=== PATIENT | male | born 1955 | race Caucasian/White ===

== ENCOUNTER 2023-05-10 20:00 | Observation (INO) ==
[2023-05-10] MEDS ORDERED: SODIUM CHLORIDE 0.9% 1,000 ML IV ONE (21:27)
[2023-05-10] MEDS ORDERED: ONDANSETRON INJ 2 MG/ML 2 ML VIAL IV STA (21:27)
--- NOTE | 2023-05-10 21:34 | Emergency Department Note ---
Impression & Plan Syncope, Nausea, Hypotension, STEVE (acute kidney injury) ED Provider Note NAME: SHANICE HARRIS AGE: 68 SEX: M : 1955 ARRIVES VIA: Ambulance INFORMANT: [Patient][family] ED PROVIDER(S): [Son Blackwood MD] CHIEF COMPLAINT: Syncope HISTORY OF PRESENT ILLNESS: The patient is a 68-year-old male who has been dealing with nausea that has been persistent for at least a week. The patient was given some medication for nausea. He did try 1 today. The patient is on 2 different medications for blood pressure and he took them as directed this morning. The patient was sitting at the table eating this evening and felt dizzy and faint and tired. He thought he just laid his head down but, as per the family, he passed out. He did not suffer any injury. There was no chest pain or abdominal pain. The patient does admit to some pain to swallow, he actually is seeing GI for an endoscopy in 2 days. There has been no urinary complaint, no fever, no exertional chest pain. He becerra s admit to some fatigue lately and there is concern from his family that he may be dehydrated. Of note, as per EMS, the patient was given 1 L of IV saline in route. Initial blood pressure was in the 90s systolic. PMHx/PSHx: See Below SOCIAL HISTORY: See Below. PHYSICAL EXAM: GENERAL: Patient is in no acute distress. HEENT: No acute trauma, normocephalic atraumatic, mucous membranes moist, no nasal congestion. NECK: No stridor, no adenopathy, no meningismus, trachea is midline. LUNGS: Clear to auscultation bilaterally, no wheeze, no rhonchi, breath sounds equal. HEART: Without murmurs gallops or rubs, regular rate and rhythm. ABDOMEN: Soft, nontender, bowel sounds positive, no peritonitis. EXTREMITIES: No cyanosis or edema, full range of motion of all the joints without pain or difficulty, no signs for acute trauma. NEUROLOGIC: Oriented x 3, no acute motor or sensory deficits, no focal weakness. SKIN: No rash, no jaundice, no diaphoresis. DIFFERENTIAL DIAGNOSIS: Dehydration, dysrhythmia, anemia, electrolyte imbalance, NC, vasovagal syncope, among others. EMERGENCY DEPARTMENT COURSE/PROCEDURES: Prior/Outside records reviewed: EMS notes. ECG per my interpretation: Indication was syncope. The ECG shows a normal sinus rhythm with a rate of 83. There is a right bundle branch block. There is no ST elevation, no PVCs. The QTc is 444. No previous ECGs available for comparison. Continuous Cardiac Monitoring per my interpretation: An order was placed for continuous cardiac monitoring. The monitor shows a rate of 83 with normal sinus rhythm. MEDICAL DECISION MAKING: There is a mild leukocytosis, this could be consistent with infection or just his syncopal event. There was a mild anemia with a hemoglobin of 13. There was a normal platelet count. Sodium slightly low at 132 but not in need of emergent correction. Creatinine was quite high consistent with dehydration and acute kidney injury. No concerning liver enzyme elevation. Patient's TSH was elevated however, the T4 was normal. ECG showed a normal sinus rhythm, there was no obvious acute ischemia, no dysrhythmia. The cardiac enzyme testing x1 is not consistent with acute cardiac injury. Urinalysis does not show findings of infection. Chest x-ray per my review does not show mediastinal widening, pneumonia or pneumothorax. On exam, the patient was somewhat hypotensive. The patient was given IV Zofran, he had received a liter of IV fluids prior to arrival, a second liter of fluid was given here in the ED. His blood pressure did improve with the IV hydration. The patient is in need of a hospital stay. He presents after a syncopal spell. He was hypotensive. He does have findings of acute kidney injury. I spoke with the patient and case management, the on-call hospitalist was consulted. DISPOSITION: Patient's presentation and findings warrant a hospital stay. Past Med/Surg History Medical History Hyperlipidemia Obesity, diabetes, and hypertension syndrome Vitamin D deficiency Surgical History No history of previous surgery Family History Sister Hypertension Denies family history of Ovarian cancer Prostate cancer Diabetes Myocardial infarction Breast cancer Colorectal cancer Social History Smoking Status: Former smoker Tobacco Type: Cigarettes Age Started Using Tobacco: 17; Age Quit Using Tobacco: 29; Second Hand Exposure: No; Do You Dip or Chew Tobacco: No; Hx Alcohol Use: No Hx Substance Use: No Preferred Language: French Communication Ability: Effective Visual Impairment: Limited Hearing Ability: Normal Cardroom Drawing Runner Required: No Beliefs That Will Affect Care: None marital status: Single Current Living Situation: Significant Other current occupational status: retired How many Children do You have: 3 Feels Safe at Home: Yes Childhood Exposure to Second-Hand Smoke: No Diet: regular caffeine: Yes (coffee) during the past year weight has: remained stable Dental Care, Regularly: Yes Physical Activity Frequency: Daily Physical Activity Frequency Comment: walking Seatbelt Use: always Sunscreen Use: No Do you think of yourself as: straight/heterosexual Gender Identity: Male Assistive Devices: Denture - Upper and Glasses Allergies Allergies Allergy/AdvReac Type Severity Reaction Status Date / Time No Known Allergies Allergy Verified 05/10/23 21:36 Home Meds Home Medications Medication Instructions Recorded Confirmed metformin 500 mg tablet 500 mg PO DAILY 05/10/23 05/10/23 Previous Rx's Medication Instructions Recorded empagliflozin 25 mg tablet 25 mg PO DAILY #30 tabs 07/11/22 lisinopril 10 mg tablet 10 mg PO DAILY #90 tabs 01/13/23 omeprazole 20 mg capsule,delayed 20 mg PO DAILY #90 caps 01/13/23 release hydrochlorothiazide 25 mg tablet 25 mg PO DAILY #90 tabs 03/02/23 ondansetron 4 mg disintegrating 4 mg PO Q8H PRN nausea and 05/06/23 tablet vomiting #60 tabs sildenafil 50 mg tablet 50 mg PO DAILY PRN sexual activity 05/06/23 #20 tabs simvastatin 20 mg tablet 20 mg PO QPM #90 tabs 05/06/23 Results & Data (ED) Vital Signs Vital Signs - 24 hr 05/10/23 20:05 05/10/23 20:05 05/10/23 20:05 Temperature 37.1 C 37.1 C Temperature Source Oral Oral Pulse Rate 82 Pulse Rate [Apical] 80 Pulse Rate from SpO2 Sensor Pulse Rhythm [Apical] Regular Respiratory Rate 17 16 Respiratory Effort / Characteristics Non-Labored Non-Labored Respiratory Depth Normal Normal Respiratory Pattern Regular Regular Blood Pressure 105/63 Blood Pressure [Right Arm] 105/63 Blood Pressure Mean 77 Blood Pressure Mean [Right Arm] 77 Pulse Oximetry 97 97 100 Oxygen Delivery Method Room Air Room Air Room Air Sepsis Recent Fever Within 48 Hours No Sepsis New/Unexplained Change in Mental Status N/A Sepsis Action Taken by Nursing No Action Required 05/10/23 20:05 05/10/23 20:06 05/10/23 20:30 Temperature Temperature Source Pulse Rate 79 80 89 Pulse Rate [Apical] Pulse Rate from SpO2 Sensor 81 91 H Pulse Rhythm [Apical] Respiratory Rate 16 20 Respiratory Effort / Characteristics Respiratory Depth Respiratory Pattern Blood Pressure Blood Pressure [Right Arm] Blood Pressure Mean Blood Pressure Mean [Right Arm] Pulse Oximetry 97 96 Oxygen Delivery Method Room Air Sepsis Recent Fever Within 48 Hours Sepsis New/Unexplained Change in Mental Status Sepsis Action Taken by Nursing 05/10/23 20:59 05/10/23 21:36 05/10/23 21:00 Temperature Temperature Source Pulse Rate 83 Pulse Rate [Apical] Pulse Rate from SpO2 Sensor 83 Pulse Rhythm [Apical] Respiratory Rate 18 Respiratory Effort / Characteristics Respiratory Depth Respiratory Pattern Blood Pressure 94/59 L 104/65 Blood Pressure [Right Arm] Blood Pressure Mean 70 74 Blood Pressure Mean [Right Arm] Pulse Oximetry 93 96 Oxygen Delivery Method Room Air Sepsis Recent Fever Within 48 Hours Sepsis New/Unexplained Change in Mental Status Sepsis Action Taken by Nursing 05/10/23 21:30 05/10/23 22:00 05/10/23 22:30 Temperature Temperature Source Pulse Rate 78 70 73 Pulse Rate [Apical] Pulse Rate from SpO2 Sensor 80 71 75 Pulse Rhythm [Apical] Respiratory Rate 18 17 22 Respiratory Effort / Characteristics Respiratory Depth Respiratory Pattern Blood Pressure 105/68 109/71 109/74 Blood Pressure [Right Arm] Blood Pressure Mean 80 83 85 Blood Pressure Mean [Right Arm] Pulse Oximetry 96 97 94 Oxygen Delivery Method Room Air Room Air Room Air Sepsis Recent Fever Within 48 Hours Sepsis New/Unexplained Change in Mental Status Sepsis Action Taken by Shelter Medications Current Medication List: was personally reviewed by me Laboratory Data Attestation: I reviewed the patient's lab results. 05/10/23 20:10 05/10/23 20:10 Lab Results 05/10/23 05/10/23 Range/Units 20:10 20:10 WBC 11.58 H (4.8-10.8) K/ul RBC 4.57 L (4.70-6.10) M/uL Hgb 13.0 L (14.0-18.0) g/dl Hct 38.6 L (42.0-52.0) % MCV 84.5 (80.0-100.0) fL MCH 28.4 (25.0-34.0) pg MCHC 33.7 (32.0-36.0) g/dL RDW Std Deviation 42.1 (36.4-46.3) fL RDW Coeff of Michael 13.7 (11.5-14.5) % Plt Count 393 (130-400) K/uL MPV 10.8 (9.4-12.4) fL Immature Gran % (Auto) 0.5 % Neut % (Auto) 70.0 % Lymph % (Auto) 17.8 % [place] % (Auto) 9.7 % Eos % (Auto) 1.5 % Baso % (Auto) 0.5 % Neut # (Auto) 8.11 H (1.40-6.50) K/uL Lymph # (Auto) 2.06 (1.20-3.40) K/uL [place] # (Auto) 1.12 H (0.11-0.59) K/uL Eos # (Auto) 0.17 (0.00-0.50) K/uL Baso # (Auto) 0.06 (0.00-0.20) K/uL Immature Gran # (Auto) 0.06 (0.01-0.20) K/uL Sodium 132 L (136-145) mmol/L Potassium 3.6 (3.5-5.1) mmol/L Chloride 95 L (98-107) mmol/L Carbon Dioxide 27 (21-32) mmol/L Anion Gap 10 (3-11) BUN 21 (6-23) mg/dl Creatinine 2.40 H (0.6-1.4) mg/dl Est Cr Clr Drug Dosing 31.6 ml/min Est GFR ( Amer) 30.5 ml/min Est GFR (Non-Af Amer) 26.3 ml/min BUN/Creatinine Ratio 8.8 L (10-20) Glucose 158 H (70-99(Fasting)) mg/dl Calcium 10.0 (8.6-10.3) mg/dl Magnesium 2.0 (1.7-2.4) mg/dl Total Bilirubin 0.6 (0.2-1.0) mg/dl AST 17 (13-39) U/L ALT 10 (7-52) U/L Alkaline Phosphatase 82 (34-104) U/L Troponin I High Sens 6.6 (0-20) pg/ml Total Protein 8.0 (6.0-8.3) gm/dl Albumin 4.3 (3.4-5.0) gm/dl Globulin 3.7 (2.5-4.0) gm/dl Albumin/Globulin Ratio 1.2 (0.9-2) TSH 8.742 H (0.300-4.500) uIu/ml Free T4 1.00 (0.61-1.60) ng/dl Administered Medications Discontinued Medications Sodium Chloride (Nss) 1,000 mls @ 999 mls/hr IV .Q1H1M ONE Stop: 05/10/23 22:27 Last Infusion: 05/10/23 22:37 Dose: 0 mls/hr Documented By: Admin: 05/10/23 21:35 Dose: 999 mls/hr Documented By: ANTONIO Ondansetron HCl (Ondansetron Inj 2 Mg/Ml 2 Ml Vial) 4 mg IV NOW STA Stop: 05/10/23 21:28 Last Admin: 05/10/23 21:34 Dose: 4 mg Documented By: ANTONIO Imaging Data Attestation: I personally reviewed and interpreted this imaging study as follow s: My Impression: Chest x-ray: Per my review there is no mediastinal widening, pneumonia or pneumothorax. Discharge Plan Visit Data Chief Complaint: Syncope ED Provider: Son Blackwood Discharge Problem: Syncope, Nausea, Hypotension, STEVE (acute kidney injury) Patient Disposition: Admitted As Inpatient Condition: Fair
[2023-05-10 21:50] LABS: Basophils # (auto) 0.06 K/uL (0.00-0.20); Basophils % (auto) 0.5 %; Eosinophils # (auto) 0.17 K/uL (0.00-0.50); Eosinophils % (auto) 1.5 %; Hematocrit (blood only) 38.6 % (42.0-52.0); Immature Granulocytes # (auto) 0.06 K/uL (0.01-0.20); Immature Granulocytes % (auto) 0.5 %; Lymphocytes # (auto) 2.06 K/uL (1.20-3.40); Lymphocytes % (auto) 17.8 %; Mean Corpuscular Hemoglobin 28.4 pg (25.0-34.0); Mean Corpuscular Hgb Conc 33.7 g/dL (32.0-36.0); Mean Corpuscular Volume 84.5 fL (80.0-100.0); Mean Platelet Volume 10.8 fL (9.4-12.4); Monocytes # (auto) 1.12 K/uL (0.11-0.59); Monocytes % (auto) 9.7 %; Neutrophils # (auto) 8.11 K/uL (1.40-6.50); Platelet Count 393 K/uL (130-400); RDW Coefficient of Variation 13.7 % (11.5-14.5); RDW Standard Deviation 42.1 fL (36.4-46.3); Red Blood Count 4.57 M/uL (4.70-6.10); White Blood Count 11.58 K/ul (4.8-10.8)
[2023-05-10 21:52] LABS: Albumin Globulin Ratio 1.2 (0.9-2); Albumin Level 4.3 gm/dl (3.4-5.0); BUN Creatinine Ratio 8.8 (10-20); Bilirubin,Total 0.6 mg/dl (0.2-1.0); Creatinine Clr Calc Pharmacy 31.6 ml/min; Est GFR (African American) 30.5 ml/min; Est GFR (Non-African American) 26.3 ml/min; Globulin 3.7 gm/dl (2.5-4.0); Potassium 3.6 mmol/L (3.5-5.1)
[2023-05-10 22:00] LABS: Troponin I High Sensitivity 6.6 pg/ml (0-20)
[2023-05-10 22:09] LABS: Thyroid Stimulating Hormone 8.742 uIu/ml (0.300-4.500)
--- NOTE | 2023-05-10 22:49 | History & Physical Report ---
Date of Service May 10, 2023 Assessment & Plan (1) STEVE (acute kidney injury): (2) Hypotension: (3) Nausea: (4) Syncope: (5) Obesity, diabetes, and hypertension syndrome: (6) Dysphagia: Plan Acute kidney injury/dehydration- Creatinine 2.40, with baseline 1.14 Status post 1 L normal saline in the ED Placed on NSS at 150 mils per hour Hold HCTZ, lisinopril and empagliflozin Repeat laboratories in the a.m. 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 Patient presents to the emergency department as noted above. Significant laboratories: WBC 11.58, hemoglobin 13.0, hematocrit 38.6, sodium 132, creatinine 2.40, glucose 158, TSH 8.742. X-ray of chest is normal From the ED patient received normal saline 1 L Allergies Allergy/AdvReac Type Severity Reaction Status Date / Time No Known Allergies Allergy Verified 05/10/23 21:36 Home Medications Medication Instructions Recorded Confirmed Type empagliflozin 25 mg tablet 25 mg PO DAILY #30 tabs 07/11/22 05/10/23 Rx lisinopril 10 mg tablet 10 mg PO DAILY #90 tabs 01/13/23 05/10/23 Rx omeprazole 20 mg capsule,delayed 20 mg PO DAILY #90 caps 01/13/23 05/10/23 Rx release hydrochlorothiazide 25 mg tablet 25 mg PO DAILY #90 tabs 03/02/23 05/10/23 Rx ondansetron 4 mg disintegrating 4 mg PO Q8H PRN nausea and 05/06/23 05/10/23 Rx tablet vomiting #60 tabs sildenafil 50 mg tablet 50 mg PO DAILY PRN sexual activity 05/06/23 05/10/23 Rx #20 tabs simvastatin 20 mg tablet 20 mg PO QPM #90 tabs 05/06/23 05/10/23 Rx metformin 500 mg tablet 500 mg PO DAILY 05/10/23 05/10/23 History Past Med/Surg History Medical History Hyperlipidemia Obesity, diabetes, and hypertension syndrome Vitamin D deficiency Surgical History No history of previous surgery Family History Sister Hypertension Denies family history of Ovarian cancer Prostate cancer Diabetes Myocardial infarction Breast cancer Colorectal cancer Social History Smoking Status: Former smoker Tobacco Type: Cigarettes Age Started Using Tobacco: 17; Age Quit Using Tobacco: 29; Second Hand Exposure: No; Do You Dip or Chew Tobacco: No; Hx Alcohol Use: No Hx Substance Use: No Preferred Language: Belarusian Communication Ability: Effective Visual Impairment: Limited Hearing Ability: Normal Lpc Required: No Beliefs That Will Affect Care: None marital status: Single Current Living Situation: Significant Other current occupational status: retired How many Children do You have: 3 Feels Safe at Home: Yes Childhood Exposure to Second-Hand Smoke: No Diet: regular caffeine: Yes (coffee) during the past year weight has: remained stable Dental Care, Regularly: Yes Physical Activity Frequency: Daily Physical Activity Frequency Comment: walking Seatbelt Use: always Sunscreen Use: No Do you think of yourself as: straight/heterosexual Gender Identity: Male Assistive Devices: Denture - Upper and Glasses Review of Systems Review of Systems: The patient denies chest pain, palpitations, shortness of breath, dyspnea on exertion, cough, lower extremity swelling, sore throat, fevers, chills, sweats, vomiting, diarrhea , constipation, abdominal pain, pelvic pain, blood in urine or stool, dysuria, urinary frequency or urgency, headache, rash, abnormal bruising or bleeding, imbalance, focal weakness, numbness or tingling in arms or legs, generalized arthralgias or myalgias, back or neck pain, or night sweats. The review of systems is otherwise negative other than for that already noted above, and at least 10 systems have been reviewed. Physical Exam Physical Exam: The patient is awake, alert and oriented 3, well developed and well nourished, normocephalic and atraumatic, lying in bed and in no acute distress. HEENT--PERRL, EOMI, mucous membranes and oropharynx moderately dry. Neck--supple. No JVD. No bruits. Thyroid normal, trachea midline, no adenopathy. Heart--normal S1 and S2. No murmurs, rubs or gallops. Lungs--clear bilaterally, no respiratory distress, no accessory muscle use. Abdomen--normal bowel sounds and soft. Nontender. Nondistended, no hernias or masses, no organomegaly. Extremities--no cyanosis or clubbing. No edema. Dermatologic--skin with normal color, dry Neurologic--cranial nerves II through XII grossly intact. Rheumatologic--normal range of motion. Psychiatric--normal affect. Results & Data Results & Data Vital Signs (Past 12 Hours) Vital Signs Temp Pulse Pulse Resp BP BP Pulse Ox 05/10/23 22:30 73 22 109/74 94 05/10/23 22:00 70 17 109/71 97 05/10/23 21:30 78 18 105/68 96 05/10/23 21:00 104/65 05/10/23 21:36 96 05/10/23 20:59 83 18 94/59 L 93 05/10/23 20:30 89 20 96 05/10/23 20:06 80 16 97 05/10/23 20:05 79 05/10/23 20:05 37.1 C 80 16 105/63 100 05/10/23 20:05 97 05/10/23 20:05 37.1 C 82 17 105/63 97 O2 Del Method 05/10/23 22:30 Room Air 05/10/23 22:00 Room Air 05/10/23 21:30 Room Air 05/10/23 21:00 05/10/23 21:36 Room Air 05/10/23 20:59 05/10/23 20:30 Room Air 05/10/23 20:06 05/10/23 20:05 05/10/23 20:05 Room Air 05/10/23 20:05 Room Air 05/10/23 20:05 Room Air Laboratory Results Laboratory Results WBC 11.58 K/ul (4.8-10.8) H 05/10/23 20:10 RBC 4.57 M/uL (4.70-6.10) L 05/10/23 20:10 Hgb 13.0 g/dl (14.0-18.0) L 05/10/23 20:10 Hct 38.6 % (42.0-52.0) L 05/10/23 20:10 MCV 84.5 fL (80.0-100.0) 05/10/23 20:10 MCH 28.4 pg (25.0-34.0) 05/10/23 20:10 MCHC 33.7 g/dL (32.0-36.0) 05/10/23 20:10 RDW Std Deviation 42.1 fL (36.4-46.3) 05/10/23 20:10 RDW Coeff of Michael 13.7 % (11.5-14.5) 05/10/23 20:10 Plt Count 393 K/uL (130-400) 05/10/23 20:10 MPV 10.8 fL (9.4-12.4) 05/10/23 20:10 Immature Gran % (Auto) 0.5 % 05/10/23 20:10 Neut % (Auto) 70.0 % 05/10/23 20:10 Lymph % (Auto) 17.8 % 05/10/23 20:10 [place] % (Auto) 9.7 % 05/10/23 20:10 Eos % (Auto) 1.5 % 05/10/23 20:10 Baso % (Auto) 0.5 % 05/10/23 20:10 Neut # (Auto) 8.11 K/uL (1.40-6.50) H 05/10/23 20:10 Lymph # (Auto) 2.06 K/uL (1.20-3.40) 05/10/23 20:10 [place] # (Auto) 1.12 K/uL (0.11-0.59) H 05/10/23 20:10 Eos # (Auto) 0.17 K/uL (0.00-0.50) 05/10/23 20:10 Baso # (Auto) 0.06 K/uL (0.00-0.20) 05/10/23 20:10 Immature Gran # (Auto) 0.06 K/uL (0.01-0.20) 05/10/23 20:10 Sodium 132 mmol/L (136-145) L 05/10/23 20:10 Potassium 3.6 mmol/L (3.5-5.1) 05/10/23 20:10 Chloride 95 mmol/L (98-107) L 05/10/23 20:10 Carbon Dioxide 27 mmol/L (21-32) 05/10/23 20:10 Anion Gap 10 (3-11) 05/10/23 20:10 BUN 21 mg/dl (6-23) 05/10/23 20:10 Creatinine 2.40 mg/dl (0.6-1.4) H 05/10/23 20:10 Est Cr Clr Drug Dosing 31.6 ml/min 05/10/23 20:10 Est GFR ( Amer) 30.5 ml/min 05/10/23 20:10 Est GFR (Non-Af Amer) 26.3 ml/min 05/10/23 20:10 BUN/Creatinine Ratio 8.8 (10-20) L 05/10/23 20:10 Glucose 158 mg/dl (70-99(Fasting)) H 05/10/23 20:10 Calcium 10.0 mg/dl (8.6-10.3) 05/10/23 20:10 Magnesium 2.0 mg/dl (1.7-2.4) 05/10/23 20:10 Total Bilirubin 0.6 mg/dl (0.2-1.0) 05/10/23 20:10 AST 17 U/L (13-39) 05/10/23 20:10 ALT 10 U/L (7-52) 05/10/23 20:10 Alkaline Phosphatase 82 U/L (34-104) 05/10/23 20:10 Troponin I High Sens 6.6 pg/ml (0-20) 05/10/23 20:10 Total Protein 8.0 gm/dl (6.0-8.3) 05/10/23 20:10 Albumin 4.3 gm/dl (3.4-5.0) 05/10/23 20:10 Globulin 3.7 gm/dl (2.5-4.0) 05/10/23 20:10 Albumin/Globulin Ratio 1.2 (0.9-2) 05/10/23 20:10 TSH 8.742 uIu/ml (0.300-4.500) H 05/10/23 20:10 Free T4 1.00 ng/dl (0.61-1.60) 05/10/23 20:10 Urine Color Yellow 05/10/23 23:18 Urine Appearance Clear (Clear) 05/10/23 23:18 Urine pH 6.5 (4.5-7.5) 05/10/23 23:18 Ur Specific [place] 1.013 (1.000-1.030) 05/10/23 23:18 Urine Protein 1+ (Negative) H 05/10/23 23:18 Urine Glucose (UA) 2+ (Negative) H 05/10/23 23:18 Urine Ketones Negative (Negative) 05/10/23 23:18 Urine Blood Negative (Negative) 05/10/23 23:18 Urine Nitrite Negative (Negative) 05/10/23 23:18 Urine Bilirubin Negative (Negative) 05/10/23 23:18 Urine Urobilinogen Negative (Negative) 05/10/23 23:18 Ur Leukocyte Esterase Negative (Negative) 05/10/23 23:18 Urine WBC (Auto) 1-5 /hpf (0-5) 05/10/23 23:18 Urine RBC (Auto) 0-4 /hpf (0-4) 05/10/23 23:18 U Hyaline Cast (Auto) 5-10 /lpf (0-5) H 05/10/23 23:18 U Epithel Cells (Auto) 10-20 /lpf (0-5) H 05/10/23 23:18 Urine Bacteria (Auto) Negative (Negative) 05/10/23 23:18 Code Status & VTE Plan Code Status Full code VTE Prophylaxis Plan VTE Prophylaxis will be ordered: Yes PG Care Time/CCT Total # of Minutes Spent Total Time Spent with Patient: Total time spent is greater than 50% in coordination of care (as documented) at patient's floor/unit and/or counseling patient: Coding Level of Care Code 39440 INT INP/OBS CARE MIN Diagnoses STEVE (acute kidney injury) N17.9 Hypotension I95.9 Hypotension type: unspecified hypotension type Nausea R11.0 Syncope R55 Syncope type: unspecified Obesity, diabetes, and hypertension syndrome E11.69; E11.59; E66.9; I15.2 Dysphagia R13.10 (2) Hypotension Hypotension type: unspecified hypotension type Qualified Code(s): I95.9 - Hypotension, unspecified (4) Syncope Syncope type: unspecified Qualified Code(s): R55 - Syncope and collapse
[2023-05-10 23:37] LABS: Appearance Urine Clear (Clear); Bacteria Urine Automated Negative (Negative); Bilirubin Urine Negative (Negative); Blood Urine Negative (Negative); Color Urine Yellow; Glucose Urine UA 2+ (Negative); Ketones Urine Negative (Negative); Leukocyte Esterase Urine Negative (Negative); Nitrite Urine Negative (Negative); Protein Urine 1+ (Negative); RBC Urine Automated 0-4 /hpf (0-4); Specific Gravity Urine 1.013 (1.000-1.030); Urobilinogen Urine Negative (Negative); pH Urine 6.5 (4.5-7.5)
[2023-05-10] MEDS ORDERED: GLUCOSE 10 TAB/TUBE PO PRN (23:40)
[2023-05-10] MEDS ORDERED: CARBOHYDRATES FOR HYPOGLYCEMIA PO PRN (23:40)
[2023-05-10] MEDS ORDERED: ONDANSETRON INJ 2 MG/ML 2 ML VIAL IV PRN (23:40)
[2023-05-10] MEDS ORDERED: GLUCAGON FOR INJ 1 MG VIAL SQ PRN (23:40)
[2023-05-10] MEDS ORDERED: GLUCOSE 40% GEL 15 GM TUBE PO PRN (23:40)
[2023-05-10] MEDS ORDERED: ACETAMINOPHEN 325 MG TAB PO PRN (23:40)
[2023-05-10] MEDS ORDERED: DEXTROSE 50% 50 ML SYRINGE IV PRN (23:40)
[2023-05-11] MEDS: SODIUM CHLORIDE 0.9% 1,000 ML IV SCH ×3 (01:33→14:58)
[2023-05-11 04:35] LABS: Basophils # (auto) 0.04 K/uL (0.00-0.20); Basophils % (auto) 0.5 %; Eosinophils # (auto) 0.14 K/uL (0.00-0.50); Eosinophils % (auto) 1.6 %; Hematocrit (blood only) 32.3 % (42.0-52.0); Hemoglobin 11.2 g/dl (14.0-18.0); Immature Granulocytes # (auto) 0.03 K/uL (0.01-0.20); Immature Granulocytes % (auto) 0.3 %; Lymphocytes # (auto) 1.39 K/uL (1.20-3.40); Lymphocytes % (auto) 15.8 %; Mean Corpuscular Hemoglobin 29.2 pg (25.0-34.0); Mean Corpuscular Hgb Conc 34.7 g/dL (32.0-36.0); Mean Corpuscular Volume 84.1 fL (80.0-100.0); Mean Platelet Volume 10.3 fL (9.4-12.4); Monocytes # (auto) 0.78 K/uL (0.11-0.59); Monocytes % (auto) 8.9 %; Neutrophils # (auto) 6.43 K/uL (1.40-6.50); Neutrophils % (auto) 72.9 %; Platelet Count 295 K/uL (130-400); RDW Coefficient of Variation 13.5 % (11.5-14.5); RDW Standard Deviation 41.5 fL (36.4-46.3); Red Blood Count 3.84 M/uL (4.70-6.10); White Blood Count 8.81 K/ul (4.8-10.8)
[2023-05-11 04:52] LABS: Albumin Level 3.5 gm/dl (3.4-5.0); BUN Creatinine Ratio 10.3 (10-20); Calcium 8.6 mg/dl (8.6-10.3); Est GFR (African American) 41.8 ml/min; Est GFR (Non-African American) 36.1 ml/min; Magnesium 1.9 mg/dl (1.7-2.4); Phosphorus 4.1 mg/dl (2.5-4.9)
[2023-05-11 07:05] LABS: Estimated Average Glucose 140 mg/dl; Hemoglobin A1C 6.5 % (4.5-5.6)
--- NOTE | 2023-05-11 07:48 | XRay Report ---
XR chest 1V portable CLINICAL HISTORY: weakness TECHNIQUE: Single frontal radiograph of the chest was obtained. Comparison: None available at the time of this dictation. FINDINGS: No lines and tubes are seen. The cardiomediastinal silhouette is normal. The lungs are clear. No evid ence of pleural effusion or pneumothorax. IMPRESSION: No acute chest disease. ACT 112: Negative or not required by law. Electronically signed by: Jitendra Jefferson M.D. 05/11/2023 7:47 AM
[2023-05-11] MEDS: INSULIN ASPART PER UNIT CHARGE SC SCH ×4 (07:52→22:18)
[2023-05-11] MEDS: PANTOprazole 40 MG TAB PO SCH (09:42)
--- NOTE | 2023-05-11 13:16 | Hospitalist Progress Note ---
Date of Service May 11, 2023 Assessment & Plan (1) STEVE (acute kidney injury): Plan: Continue IV fluids. Monitor intake and output. Serial labs. Lisinopril and hy drochlorothiazide are on hold (2) Hypotension: Plan: Resolved with IV fluid resuscitation. Lisinopril is on hold (3) Nausea: Plan: Intermittent. Zofran as needed (4) Syncope: Plan: Most likely due to orthostatic hypotension. Supportive care. IV fluids. Telemetry (5) Dysphagia: Plan: Recent development. Outpatient evaluation. PCP aware Plan Hopeful discharge to home tomorrow, May 12 Admission and Anticipated Discharge Date Admission Date: May 10, 2023 Subjective Alert and oriented. No acute distress. Significant other is at the bedside. Continue IV fluids for now. Lisinopril, hydrochlorothiazide, metformin, are on hold. Creatinine improved to 1.8 already with IV fluids. Hopefully he can go home tomorrowMay 12 Review of Systems Review of Systems: Constitutional-no fever or chills ENT-no blurred vision, no double vision, no epistaxis, no sore throat Respiratory-no cough, no wheezing, no shortness of breath Cardiac-no palpitations, no chest pain, no syncope GI-no nausea, vomiting, diarrhea, melena, hematochezia. Poor appetite lately however -no urinary retention, no urinary incontinence, no dysuria, no hematuria Musculoskeletal-no joint pain, no muscle tenderness Skin-no bruising, no rashes, no pruritus Neuro-no isolated weakness, no paresthesia, no weakness Psych-no depression, no anxiety Physical Exam Physical Exam: General-alert and oriented x3, no fevers, no chills HEENT-head atraumatic and normocephalic, pupils equal and reactive to light, extraocular muscles intact Neck-no lymphadenopathy or thyromegaly, trachea midline Chest-clear to auscultation percussion. No rales wheezing or rhonchi Cardiac-regular rate and rhythm, normal S1 and S2 Abdomen-normal bowel sounds, nontender, no hepatosplenomegaly Extremities-no cyanosis, clubbing, or edema Neuro-cranial nerves II through XII intact, motor and sensory function within normal limits, strength symmetrical, no focal deficits Psych-normal affect, normal mood Results & Data Results & Data Vital Signs (Past 12 Hours) Vital Signs Pulse Pulse Resp BP BP Pulse Ox O2 Del Method 05/11/23 07:04 66 05/11/23 07:31 65 20 112/74 98 Room Air 05/11/23 06:01 77 19 116/58 L 99 Room Air 05/11/23 05:00 67 17 115/74 96 Room Air 05/11/23 04:00 63 18 118/74 99 Room Air 05/11/23 03:02 73 18 126/75 96 Room Air 05/11/23 02:30 63 16 96 Room Air 05/11/23 02:00 63 16 101/64 96 Room Air Laboratory Results 05/11/23 04:18 05/11/23 04:18 PG Care Time/CCT Total # of Minutes Spent Total Time Spent with Patient: Total time spent is greater than 50% in coordination of care (as documented) at patient's floor/unit and/or counseling patient: Coding Level of Care Code 00500 SUB INP/OBS CARE 3/50MIN Diagnoses STEVE (acute kidney injury) N17.9 Hypotension I95.9 Hypotension type: unspecified hypotension type Nausea R11.0 Syncope R55 Syncope type: unspecified Dysphagia R13.10 (2) Hypotension Hypotension type: unspecified hypotension type Qualified Code(s): I95.9 - Hypotension, unspecified (4) Syncope Syncope type: unspecified Qualified Code(s): R55 - Syncope and collapse
[2023-05-12] MEDS: SODIUM CHLORIDE 0.9% 1,000 ML IV SCH ×2 (02:03→12:17)
[2023-05-12 06:50] LABS: Basophils # (auto) 0.05 K/uL (0.00-0.20); Basophils % (auto) 0.6 %; Eosinophils # (auto) 0.16 K/uL (0.00-0.50); Eosinophils % (auto) 1.9 %; Hematocrit (blood only) 33.5 % (42.0-52.0); Hemoglobin 11.3 g/dl (14.0-18.0); Immature Granulocytes # (auto) 0.02 K/uL (0.01-0.20); Immature Granulocytes % (auto) 0.2 %; Lymphocytes # (auto) 1.35 K/uL (1.20-3.40); Lymphocytes % (auto) 16.4 %; Mean Corpuscular Hemoglobin 28.5 pg (25.0-34.0); Mean Corpuscular Hgb Conc 33.7 g/dL (32.0-36.0); Mean Corpuscular Volume 84.4 fL (80.0-100.0); Mean Platelet Volume 10.4 fL (9.4-12.4); Monocytes # (auto) 0.62 K/uL (0.11-0.59); Monocytes % (auto) 7.5 %; Neutrophils # (auto) 6.04 K/uL (1.40-6.50); Neutrophils % (auto) 73.4 %; Platelet Count 288 K/uL (130-400); RDW Coefficient of Variation 13.4 % (11.5-14.5); RDW Standard Deviation 41.6 fL (36.4-46.3); Red Blood Count 3.97 M/uL (4.70-6.10); White Blood Count 8.24 K/ul (4.8-10.8)
--- NOTE | 2023-05-12 07:06 | Electrocardiogram Report ---
Test Reason : Blood Pressure : / mmHG Vent. Rate : 083 BPM Atrial Rate : 083 BPM P-R Int : 176 ms QRS Dur : 132 ms QT Int : 378 ms P-R-T Axes : 045 -33 026 degrees QTc Int : 444 ms Normal sinus rhythm Left axis deviation Right bundle branch block Abnormal ECG No previous ECGs available Confirmed by Flako Humphrey ([id number]) on 05/12/2023 7:05:55 AM Referred By: NO PCP Confirmed By:Flako Humphrey
[2023-05-12 07:24] LABS: BUN Creatinine Ratio 10.9 (10-20); Calcium 8.5 mg/dl (8.6-10.3); Creatinine Clr Calc Pharmacy 57.8 ml/min; Est GFR (African American) 64.7 ml/min; Est GFR (Non-African American) 55.8 ml/min; Potassium 3.9 mmol/L (3.5-5.1)
[2023-05-12] MEDS: PANTOprazole 40 MG TAB PO SCH (08:17)
[2023-05-12] MEDS: INSULIN ASPART PER UNIT CHARGE SC SCH ×2 (08:45→12:45)
--- NOTE | 2023-05-12 13:46 | Discharge Summary ---
Date of Service May 12, 2023 Admission HPI Per Admitting Provider The patient is a 68-year-old male with a past medical history including hyperlipidemia, obesity, diabetes, hypertension, and GERD. Patient presents to the emergency department as noted above. Significant laboratories: WBC 11.58, hemoglobin 13.0, hematocrit 38.6, sodium 132, creatinine 2.40, glucose 158, TSH 8.742. X-ray of chest is normal From the ED patient received normal saline 1 L Principal Diagnosis Volume depletion, syncope, acute kidney injury Discharge Exam General-alert and oriented x3, no fevers, no chills HEENT-head atraumatic and normocephalic, pupils equal and reactive to light, extraocular muscles intact Neck-no lymphadenopathy or thyromegaly, trachea midline Chest-clear to auscultation percussion. No rales wheezing or rhonchi Cardiac-regular rate and rhythm, normal S1 and S2 Abdomen-normal bowel sounds, nontender, no hepatosplenomegaly Extremities-no cyanosis, clubbing, or edema Neuro-cranial nerves II through XII intact, motor and sensory function within normal limits, strength symmetrical, no focal deficits Psych-normal affect, normal mood Discharge Data Allergies Allergy/AdvReac Type Severity Reaction Status Date / Time No Known Allergies Allergy Verified 05/10/23 21:36 Consultations 05/10/23 22:09 ED Decision to Admit Stat Hospital Course (1) STEVE (acute kidney injury): Treated while hospitalized with IV fluids. Monitor intake and output. Serial labs. Lisinopril and hydrochlorothiazide are discontinued. Creatinine has improved down to 1.2. (2) Hypotension: Resolved with IV fluid resuscitation. Lisinopril and hydrochlorothiazide have been discontinued (3) Nausea: Resolved. Zofran as needed (4) Syncope: Most likely due to orthostatic hypotension. Supportive care. Treated while hospitalized with IV fluids. Telemetry (5) Dysphagia: Recent development. Outpatient evaluation. PCP aware Plan Home today, May 12. Hydrochlorothiazide and lisinopril have been discontinued Total Time Total Time Spent Total Time Spent (In Minutes): 45 minutes Discharge Plan Discharge Items Patient Disposition: Home - Self-Care Reason For Visit: STEVE, SYNCOPE Discharge Diagnosis: Volume depletion, acute kidney injury, syncope Condition on Discharge: Good Activity: Resume your previous activity Non-emergency contact: Primary Care Provider Call non-emergency contact if: your symptoms worsen Follow-up/Referrals: Shamir Núñez DO [Primary Care Provider] - Diet: Carb Consistent or DM2 Addtl Attending Provider Instructions: Lisinopril and hydrochlorothiazide Pending Studies at Discharge: No Stand-Alone Forms: My [facility] FUJIAN HAIYUAN, Smoking Cessation Medications and DC Order Prescriptions: Continued empagliflozin 25 mg tablet 25 mg PO DAILY Qty: 30 11RF omeprazole 20 mg capsule,delayed release(DR/EC) 20 mg PO DAILY Qty: 90 3RF ondansetron 4 mg tablet,disintegrating 4 mg PO Q8H PRN (Reason: nausea and vomiting) Qty: 60 5RF sildenafil 50 mg tablet 50 mg PO DAILY PRN (Reason: sexual activity) Qty: 20 5RF Rx Instructions: administer 30 minutes to 4 hours before activity simvastatin 20 mg tablet 20 mg PO QPM Qty: 90 3RF metformin 500 mg tablet 500 mg PO DAILY Discontinued hydrochlorothiazide 25 mg tablet 25 mg PO DAILY Qty: 90 3RF lisinopril 10 mg tablet 10 mg PO DAILY Qty: 90 3RF Discharge Orders: Discharge Order (Routine); Ordered 05/12/23 Ordered By: Rocky Hernandez/Other Patient Handouts: Managing Type 2 Diabetes Admission Data Admit Date/Time: 05/10/23 22:48 Attending Provider: Rocky Milelr Admit Provider: Dionisio Schwarz Primary Care Provider: Shamir Núñez Other Providers: Dionisio Schwarz Coding Level of Care Code 10798 INP/OBS DISCH >30 MIN Diagnoses STEVE (acute kidney injury) N17.9 Hypotension I95.9 Hypotension type: unspecified hypotension type Nausea R11.0 Syncope R55 Syncope type: unspecified Dysphagia R13.10
== END 2023-05-12 14:11 | disposition home or self-care (01) ==
LOC: ED 20:00 → EDINP 20:00 → SUATTDRO 22:48 → 2N 23:41

== ENCOUNTER 2023-07-26 10:26 | Observation (INO) ==
--- OUTSIDE RECORDS SUMMARY | 2023-07-26 10:31 | External Medical Summary ---
Author Name Unknown Address Unknown Organization K09[facility] [address] [place] [address] Laboratory Report Ordering Provider Test Date Status JUAN SHARMA 07/21/2023 09:27:49 Final Observation Date Value Abnormality Reference (Units ) Status SYNC LEUKOCYTES IN BLOOD BY AUTOMATED COUNT 07/21/2023 09:27:49 4.81 4.00-10.80 (K/uL) Final Segs 07/21/2023 09:27:49 58.9 40.0-75.0 (%) Final Lymphs % 07/21/2023 09:27:49 24.9 18.0-42.0 (%) Final Monos 07/21/2023 09:27:49 14.3 Above high normal 1.0-11.0 (%) Final Eosinophils 07/21/2023 09:27:49 1.5 0.0-6.0 (%) Final Basos 07/21/2023 09:27:49 0.4 0.0-2.0 (%) Final Absolute Segs 07/21/2023 09:27:49 2.83 1.80-7.70 (K/uL) Final Lymphs, absolute 07/21/2023 09:27:49 1.20 1.00-4.80 (K/ul) Final Monos, Abs 07/21/2023 09:27:49 0.69 0.00-1.10 (K/uL) Final Eos, Abs 07/21/2023 09:27:49 0.07 0.00-0.70 (K/uL) Final Basos, Abs 07/21/2023 09:27:49 0.02 0.00-0.20 (K/uL) Final Performing Location [facility] [place] [address]
--- OUTSIDE RECORDS SUMMARY | 2023-07-26 10:31 | External Medical Summary | Summary of Care ---
Author Name Unknown Organization [facility] Address [address] [place] [address] Phone [phone] Care Team Providers Care Vba Developer Name Role Phone Shamir Núñez DO Primary Care Provi romi Reason for Visit * Reason Comments Procedure Pump d/c * Episode Based Medications (Routine) - Authorized Specialty Diagnoses / Procedures Referred By Liane t Referred To Contact Diagnoses Encounter for antineoplastic chemotherapy Malignant 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) Secondary malignant neoplasm of liver (HCC) Procedures MT LEUCOVORIN CALCIUM INJECTION MT PALONOSETRON HCL MT FLUOROURACIL INJECTION MT OXALIPLATIN MT INJECTION, NIVOLUMAB Shalom Nguyen MD [address] [place] [address] Anc Hem/Onc [address] [address] Referral ID Status Reason Start Date Expiration Date V isits Requested Visits Authorized [id number] Authorized 06/12/2023 12/11/2023 999 [id number] Encounter Details Date Type Department Care Team (Latest Contact Info) Description 07/24/2023 12:45 PM EST Immunization/ Injection Hematology/Oncology Treatment, [address] [address] Nurse, Med [address] [place] [id number] Encounter for antineoplastic chemotherapy*; Malignant 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); Secondary malignant neoplasm of liver (HCC) Allergies No known active allergiesdocumented as of this encounter (statuses as of 07/24/2023) Medications Medication Sig Dispensed Refills Start Date End Date Status Apixaban 5 MG Oral Tablet (Eliquis) Take 2 Tablets by mouth in the morning and 2 Tablets before bedtime. 0 Active Pseudoephedrine HCl ER 120 MG Oral Tablet Extended Release 12 Hour Take 1 Tablet by mouth 2 times a day as needed. 0 Active Ondansetron HCl 8 MG Oral Tablet (Zofran)Indications: Malignant 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),Secondary malignant neoplasm of liver (HCC) Take 1 Tablet by mouth every 8 hours as needed for Nausea. 30 Tablet 2 06/12/2023 Active Prochlorperazine Maleate 10 MG Oral Tablet (Compazine)Indicatio ns:Malignant 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),Secondary malignant neoplasm of liver (HCC) Take 1 Tablet by mouth every 6 hours as needed for Nausea. 30 Tablet 2 06/12/2023 Active Lidocaine-Prilocaine 2.5-2.5 % External Cream (Emla)Indications:Ma lignant 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),Secondary malignant neoplasm of liver (HCC) APPLY TO SKIN OVER MEDIPORT & COVER 1HR PRIOR TO ACCESSING. 30 g 1 06/12/2023 Active documented as of this encounter (statuses as of 07/24/2023) Active Problems Problem Noted Date Diagnosed Date Encounter for antineoplastic chemotherapy 2022 Secondary malignant neoplasm of liver 06/02/2023 Malignant neoplasm of lower third of esophagus 1 08/01/2022 Cancer Staging:Clinical stage from 06/04/2023:Stage IVB(cM1, G2) - Unsigned documented as of this encounter (statuses as of 07/24/2023) Social History Tobacco Use Types Packs/Day Years Used Date Smoking Tobacco: Never Assessed Sex and Gender Information Value Date Recorded Sex Assigned at Not on file Gender Identity Not on file Sexual Orientation Not on file Job Start Date Occupation Industry Not on file Not on file Not on file documented as of this encounter Nursing Notes * Michelle Napier RN - 07/24/2023 1:15 PM EST Chair 10. Patient arrived today s/p 46 hours of 5FU infusion. Port flushed with NSS, blood return noted, and port locked with Heparin. Port needle removed. Patient left facility today in stable condition and denied further needs at this time. documented in this encounter Plan of Treatment Upcoming Encounters Date Type Department Care Team (Late st Contact Info) Description 08/03/2023 9:30 AM EST Laboratory Laboratory [facility] [address] [place] [address] [place], Lab Scenery [address] [facility] [employer] [place] [address] 08/04/2023 8:00 AM EST Office Visit Hematology/Oncology [facility] [place] [address] [facility] [place] [address] Shalom Nguyen MD [address] [place] [address] 08/04/2023 8:30 AM EST Hem/Onc Treatment Hematology/Oncology Treatment, [place] [address] [place] [address] Karen, Chair 7 Hem Onc [facility] [address] [facility] [place] [address] Health Maintenance Due Date Last Done Comments Lipid Panel 1953 Depression Screening 1965 Hepatitis C Screening 1971 DTaP,Tdap,and Td Vaccines (1 - Tdap) 1972 Zoster Vaccines (1 of 2) 1972 Cologuard 1998 Colonoscopy 1998 Sigmoidoscopy 1998 Hepatitis B (1 of 3 - Risk 3-dose series) 2013 Influenza Vaccine (FLU shot) (#1) 2023 Colorectal Cancer Screening 03/29/2023 Fecal Occult Blood Test 03/29/2023 03/29/2022 Pneumococcal Vaccine: 65+ Years Completed 07/11/2022 COVID-19 Vaccine Completed 06/22/2023, , 03/10/2022, Additional history exists GARDASIL-HPV IMMUNIZATION SERIES Aged Out No longer eligible based on patient's age to complete this topic MENINGOCOCCAL (MENACTRA/MENVEO) Aged Out No longer eligible based on patient's age to complete this topic documented as of this encounter Medical Devices Implanted Type Area Client Technical Support Associate Device Identifier Shelf Expiration Date Model / Serial / Lot Lens Intraoc 20.5 - [id number] - [id number] Implanted:Qty : 1 on 04/15/2022 by Albert Dasilva MD at [facility] Left: Eye [employer] 01/23/2027 [id number] / [id number] / [id number] Lens Intraoc 20.0 - [id number] - [id number] Implanted:Qty : 1 on 04/29/2022 by Albert Dasilva MD at OR [facility] Right: Eye [employer] LOMB 12/24/2026 [id number] / [id number] / [id number] Port Implant W/8f Poly Cath - [id number] Implanted:Qty : 1 on 07/01/2023 by Gio Delgado Jr., MD at OR [facility] Right: Chest CR BARD : PERIPHERAL VASCULAR [id number] 12/24/2024 [id number] / / [id number] documented as of this encounter Visit Diagnoses Diagnosis Encounter for antineoplastic chemotherapy- Primary Malignant 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) Malignant neoplasm of lower third of esophagus Secondary malignant neoplasm of liver (HCC) Secondary malignant neoplasm of liver documented in this encounter Administered Medications Active Administered Medications - up to 3 most recent administrations Medication Order MAR Action Action Date Dose Rate Site hEParin 100 UNIT/ML Lock Flush inj 500 Units 500 Units (5 mL), IV Lock, PRN Other, IV Flush, Starting on Thu07/24/23 at 1247, Until 07/25/23 at 1246, For 24 hours, Do not flush if lock, PICC, or central line not in place; IV infusing or unable to flush. Given 07/24/2023 12:52 PM EST 500 Units sodium chloride 0.9 % flush central line 10 mL 10 mL, IV Push, PRN Other, IV Flush, Starting on Thu07/24/23 at 1247, Until 07/25/23 at 1246, For 24 hours, Do not flush if lock, PICC, or central line not in place; IV infusing or unable to flush. Given 07/24/2023 12:52 PM EST 10 mL documented in this encounter Advance Directives Latest Code Status on File Code Status Date Activated Date Inactivated Comments No Code 04/29/2022 6:36 AM 04/29/2022 12:43 PM This order reflects the patients wishes and were consensually agreed upon. Question Answer Comments Discussion of Advance Directives occurred with: Patient Does the patient have a Living Will? No Does the patient have Health Care Power of Boiler Assistant Operator? No Code Status History Code Status Date Activated Date Inactivated Comments No Code 04/15/2022 8:25 AM 04/15/2022 2:57 PM This order reflects the patients wishes and were consensually agreed upon. Question Answer Comments Discussion of Advance Directives occurred with: Patient Does the patient have a Living Will? No Does the patient have Health Care Power of Boiler Assistant Operator? No Care Teams Vba Developer Relationship Specialty Start Date End Date Shamir Núñez DO [address] [place], [place] [address] [phone] PCP - General Family Medicine 03/29/22 documented as of this encounter
--- OUTSIDE RECORDS SUMMARY | 2023-07-26 10:31 | External Medical Summary | Summary of Care ---
Author Name Unknown Organization [facility] Address [address] [place] [address] Phone [phone] Care Team Providers Care Electronic Security Specialist Name Role Phone Shamir Núñez Primary Care Provi romi Encounter Details Date Type Department Care Team (Late st Contact Info) Description 07/17/2023 Orders Only Hematology/Oncology, [facility] [address] [place], [place] [id number] Malathi Huntley MD [address] [place] [address] Allergies No known active allergiesdocumented as of this encounter (statuses as of 07/17/2023) Medications Medication Sig Dispensed Refills Start Date [...] as of this encounter (statuses as of 07/17/2023) Active Problems Problem Noted Date Diagnosed Date Encounter for antineoplastic chemotherapy 2022 Secondary malignant neoplasm of liver 06/02/2023 Malignant neoplasm of lower third of esophagus 1 08/01/2022 Cancer Staging:Clinical stage from 06/04/2023:Stage IVB(cM1, G2) - Unsigned documented as of this encounter (statuses as of 07/17/2023) Social History Tobacco Use Types Packs/Day Years Used Date Smoking Tobacco: Never Assessed Sex and Gender Information Value Date Recorded Sex Assigned at Not on file Gender Identity Not on file Sexual Orientation Not on file Job Start Date Occupation Industry Not on file Not on file Not on file documented as of this encounter Plan of Treatment Upcoming Encounters Date Type Department Care Team (Late st Contact Info) Description 07/21/2023 9:30 AM EST Laboratory Laboratory [facility] [place] [address] [place] [phone] [place] [id number] 07/22/2023 11:30 AM EST Hem/Onc Treatment Hematology/Oncology Treatment, [place] [address] [place] [address] Karen, Chair 2 Hem Onc [facility] [address] [place] [id number] 08/03/2023 9:30 AM EST Laboratory Laboratory [facility] Karen [place] [address] [place] [phone] [place] [id number] 08/04/2023 8:00 AM EST Office Visit Hematology/Oncology [facility] [place] [address] [place] [address] Shalom Nguyen MD [address] [place], [place] [address] 08/04/2023 8:30 AM EST Hem/Onc Treatment Hematology/Oncology Treatment, [place] [address] [place], [place] [address] Karen, Chair 7 Hem Onc [address] [facility] [place], [place] [address] Health Maintenance Due Date Last Done Comments Lipid Panel 1953 Depression Screening 1965 Hepatitis C Screening 1971 DTaP,Tdap,and Td Vaccines (1 - Tdap) 1972 Cologuard 1998 Colonoscopy 1998 Sigmoidoscopy 1998 Zoster Vaccines (1 of 2) 2003 Hepatitis B (1 of 3 - Risk 3-dose series) 2013 COVID-19 Vaccine ( season) 2023 07/11/2022, 03/10/2022, 03/04/2021, Additional history exists Influenza Vaccine (FLU shot) (#1) 2023 Colorectal Cancer Screening 03/29/2023 Fecal Occult Blood Test 03/29/2023 03/29/2022 Pneumococcal Vaccine: 65+ Years Completed 07/11/2022 GARDASIL-HPV IMMUNIZATION SERIES Aged Out No longer eligible based on patient's age to complete this topic MENINGOCOCCAL (MENACTRA/MENVEO) Aged Out No longer eligible based on patient's age to complete this topic documented as of this encounter Medical Devices Implanted Type Area Assembler 1St Shift Device Identifier Shelf Expiration Date Model / Serial / Lot Lens Intraoc 20.5 - [id number] - [id number] Implanted:Qty : 1 on 04/15/2022 by Albert Dasilva MD at [facility] Left: Eye [employer]OM[employer] 01/23/2027 [id number] / [id number] / [id number] Lens Intraoc 20.0 - [id number] - [id number] Implanted:Qty : 1 on 04/29/2022 by BrownAlbert camilo MD at OR [facility] Right: Eye BA[employer]CH [employer] LOMB 12/24/2026 [id number] / [id number] / [id number] Port Implant W/8f Poly Cath - [id number] Implanted:Qty : 1 on 07/01/2023 by Gio Delgado Jr., MD at OR [facility] Right: Chest CR BARD : PERIPHERAL VASCULAR [id number] 12/24/2024 [id number] / / [id number] documented as of this encounter Advance Directives Latest Code Status on File Code Status Date Activated Date Inactivated Comments No Code 04/29/2022 6:36 AM 04/29/2022 12:43 PM This order reflects the patients wishes and were consensually agreed upon. Question Answer Comments Discussion of Advance Directives occurred with: Patient Does the patient have a Living Will? No Does the patient have Health Care Power of X Ray Equipment Mechanic? No Code Status History Code Status Date Activated Date Inactivated Comments No Code 04/15/2022 8:25 AM 04/15/2022 2:57 PM This order reflects the patients wishes and were consensually agreed upon. Question Answer Comments Discussion of Advance Directives occurred with: Patient Does the patient have a Living Will? No Does the patient have Health Care Power of X Ray Equipment Mechanic? No Care Teams Electronic Security Specialist Relationship Specialty Start Date End Date Shamir Núñez DO [address] [place] [address] [place] [address] PCP - General Family Medicine 03/29/22 documented as of this encounter
--- OUTSIDE RECORDS SUMMARY | 2023-07-26 10:31 | External Medical Summary ---
Author Name Unknown Address Unknown Organization K09[facility] [place] [address] Laboratory Report Ordering Provider Test Date Status JUAN SHARMA 07/21/2023 09:27:49 Final Observation Date Value Abnormality Reference (Units ) Status WBC, Total 07/21/2023 09:27:49 4.81 4.00-10.8 0 (K/uL) Final RBC 07/21/2023 09:27:49 4.52 4.50-5.25 (M/uL) Final Hemoglobin 07/21/2023 09:27:49 12.7 Below low normal 14 .0-16.8 (g/dL) Final HCT 07/21/2023 09:27:49 38.9 Below low normal 40. 0-48.4 (%) Final MCV 07/21/2023 09:27:49 86.1 82.0-99.5 (fL) Final MCH 07/21/2023 09:27:49 28.1 27.0-34.0 (pg) Final MCHC 07/21/2023 09:27:49 32.6 32.0-36.0 (g/dL) Final RDW 07/21/2023 09:27:49 13.5 11.5-15.5 (%) Final Platelets 07/21/2023 09:27:49 224 140-400 (K /uL) Final MPV 07/21/2023 09:27:49 9.8 6.6-11.1 ( fL) Final Performing Location [facility] [place] [address]
--- OUTSIDE RECORDS SUMMARY | 2023-07-26 10:31 | External Medical Summary | Summary of Care ---
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) Procedures MA LEUCOVORIN CALCIUM INJECTION MA PALONOSETRON HCL MA FLUOROURACIL INJECTION MA OXALIPLATIN MA INJECTION, NIVOLUMAB Shalom Nguyen MD [address] [place] [address] [place] [address] Anc Hem/Onc [address] [address] Referral ID Status Reason Start Date Expiration Date V isits Requested Visits Authorized [id number] Authorized 06/12/2023 12/11/[phone] Encounter Details Date Type Department Care Team (Latest Contact Info) Description 07/22/2023 11:30 AM EST Hem/Onc Treatment Hematology/Oncolog y Treatment, [address] [address] Karen, Chair 2 Hem Onc [address] [place] [address] Encounter for antineoplastic chemotherapy*; Malignant 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); Secondary malignant neoplasm of liver (HCC) Allergies No known active allergiesdocumented as of this encounter (statuses as of 07/22/2023) Medications Medication Sig Dispensed Refills Start Date [...] as of this encounter (statuses as of 07/22/2023) Active Problems Problem Noted Date Diagnosed Date Encounter for antineoplastic chemotherapy 2022 Secondary malignant neoplasm of liver 06/02/2023 Malignant neoplasm of lower third of esophagus 1 08/01/2022 Cancer Staging:Clinical stage from 06/04/2023:Stage IVB(cM1, G2) - Unsigned documented as of this encounter (statuses as of 07/22/2023) Social History Tobacco Use Types Packs/Day Years Used Date Smoking Tobacco: Never Assessed Sex and Gender Information Value Date Recorded Sex Assigned at Not on file Gender Identity Not on file Sexual Orientation Not on file Job Start Date Occupation Industry Not on file Not on file Not on file documented as of this encounter Last Filed Vital Signs Vital Sign Reading Time Taken Comments Blood Pressure 129/82 07/22/2023 11:55 AM EST Pulse 67 07/22/2023 11:55 AM EST Temperature 36.4 C (97.6 F) 07/22/2023 11:[address] Respiratory Rate 16 07/22/2023 11:55 AM EST Oxygen Saturation 98% 07/22/2023 11:55 AM EST Inhaled Oxygen Concentration - - Weight 75.1 kg (165 lb 9.6 oz) 07/22/2023 11:55 AM EST Height - - Body Mass Index 25 07/01/2023 9:46 AM EST documented in this encounter Nursing Notes * Charlee Pack RN - 07/22/2023 4:01 PM EST Functional status at today's visit: Restricted in physically strenuous activity but ambulatory and able to carry out work on a light orsedentary nature, e.g. light house work, office work The drug name, dose, infusion volume, rate and route of administration, expiration date and time, appearance and physical integrity of the drug and rate set on the pump and sequencing of drug administration (as applicable) were verified by me and second sign-in RN. Patient was assessed for symptoms or adverse side effects during treatment. Pt completed treatment without issues. VAD flushed yielding positive blood return; CADD pump connected to initiate 5FU infusion. Goals: Pt will remain free from injury. Possible barriers to meeting goals: ambulation with IV pole Stability of the patient: Moderately stable - low risk of patient condition declining or worsening Summary regarding today's goals: Met: Pt remained free from injury during treatment today. Discharged in stable condition. BR assisted. * Charlee Pack RN - 07/22/2023 11:56 AM EST CHAIR 1 Chemo agents FOLFOX D1C2 Appetite "good" Nausea/Vomiting no Diarrhea no Constipation no Mucositis no Fatigue no Bleeding no Infection no Rash no Numbness tingling Cold sensitivity resolved after 2-3 days Pain no Radiation n/a ABN Labs okay for treatment Alt in Tx: no Return in 2 days for pump disconnect VAD accessed; D5W infusing. Safety and Risk for Injury Patient will remain free from injury. Ensure appropriate safety devices are available. Provide and maintain safe environment. documented in this encounter Plan of Treatment Upcoming Encounters Date Type Department Care Team (Late st Contact Info) Description 07/24/2023 12:45 PM EST [facility] [address] [facility] [address] Nurse, Med 4 200 [facility] [place] [address] 08/03/2023 9:30 AM EST Laboratory Laboratory [facility] [address] [facility] [place] [id number] [place], Lab [address] [place] [address] 08/04/2023 8:00 AM EST Office Visit Hematology/Oncology [facility] [address] [facility] [place] [address] [facility] [address] 08/04/2023 8:30 AM EST Hem[facility] [address] Karen, Chair 7 Hem Onc [address] [place] [address] Health Maintenance Due Date Last Done Comments [...] this encounter Medical Devices Implanted Type Area Rolled Ham Lacer Device Identifier Shelf Expiration Date Model / Serial / Lot Lens Intraoc 20.5 - [id number] - [id number] Implanted:Qty : 1 on 04/15/2022 by Albert Dasilva MD at OR [facility] Left: Eye [employer] 01/23/2027 [id number] / [id number] / [id number] Lens Intraoc 20.0 - [id number] - [id number] Implanted:Qty : 1 on 04/29/2022 by Albert Dasilva MD at OR [facility] Right: Eye [employer] 12/24/2026 [id number] / [id number] / [id number] Port Implant W/8f Poly Cath - [id number] Implanted:Qty : 1 on 07/01/2023 by Gio Delgado Jr., MD at OR [facility] Right: Chest CR BARD : PERIPHERAL VASCULAR [id number] 12/24/2024 [id number] / / [id number] documented as of this encounter Visit Diagnoses [...] MAR Action Action Date Dose Rate Site D5W IV solution Intravenous, at 50 mL/hr, Background for FOLFOX, CONTINUOUS, Starting on Thu07/22/23 at 1215, Until Thu07/22/23 at 2214 Start Infusion 07/22/2023 11:41 AM EST 500 mL 50 mL/hr diphenhydrAMINE (Benadryl) inj 50 mg 50 mg, IV Push, ONCE PRN Other, Hypersensitivity Reaction, Starting on Thu07/22/23 at 1137, Until Ana 07/23/23 at 1136, For 24 hours EPINEPHrine 1 MG/ML inj 0.3 mg 0.3 mg, Intramuscular, ONCE PRN Other, Hypersensitivity Reaction or Anaphylaxis, Starting on Thu07/22/23 at 1137, Until Ana 07/23/23 at 1136, For 24 hours hEParin 100 UNIT/ML Lock Flush inj 500 Units 500 Units (5 mL), IV Lock, PRN Other, IV Flush, Starting on Thu07/22/23 at 1137, Until Ana 07/23/23 at 1136, For 24 hours, Do not flush if lock, PICC, or central line not in place; IV infusing or unable to flush. Hydrocortisone Sod Suc (PF) (Solu-Cortef) inj 100 mg 100 mg, IV Push, ONCE PRN Other, Hypersensitivity Reaction, Starting on Thu07/22/23 at 1137, Until Ana 07/23/23 at 1136, For 24 hours LORAzepam (Ativan) tab 0.5 mg 0.5 mg, Oral, ONCE PRN Anxiety, Nausea, Starting on Thu07/22/23 at 0830, Until Discontinued oxygen GAS Inhalation, OXYGEN, First dose on Thu07/22/23 at 1600, Until Discontinued, Device/Managed by: Low Flow Device, Goal SPO2 (%): 91-95, Starting Device: Nasal Cannula, Initial Flow Rate (LPM): 2, Lowest Support: Nasal Cannula: Flow 0-6 LPM. Titrate up/down by 1 LPM., Higher Support: Non-Rebreather (NRB) Mask: Minimum of 10 LPM. Titrate to maintain bag inflation., Titration Interval: Q2 minutes and as needed., Notify Provider: For sudden DECREASE in resting SPO2 to less than 85% and when escalating delivery device. sodium chloride 0.9 % flush central line 10 mL 10 mL, IV Push, PRN Other, IV Flush, Starting on Thu07/22/23 at 1137, Until Ana 07/23/23 at 1136, For 24 hours, Do not flush if lock, PICC, or central line not in place; IV infusing or unable to flush. Inactive Administered Medications - up to 3 most recent administrations Medication Order MAR Action Action Date Dose Rate Site dexAMETHasone (Decadron) tab 12 mg 12 mg, Oral, ONCE, On Thu07/22/23 at 1215, For 1 dose Given 07/22/2023 11:50 AM EST 12 mg Fluorouracil (5-Fu) 4,850 mg for Home Infusion 4,850 mg (rounded from 4,848 mg = 2,400 mg/m2 2.02 m2 Treatment Plan BSA from Recorded weight), Intravenous, Administer over 46 Hours, Home Infusion Pharmacy to specify base solution and volume., ONCE, 1 dose, On Thu07/22/23 at 1115 Start Infusion 07/22/2023 2:46 PM EST 4,850 mg 3 mL/hr Fluorouracil (5-Fu) inj 800 mg 800 mg (rounded from 808 mg = 400 mg/m2 2.02 m2 Treatment Plan BSA from Recorded weight), IV Push, ONCE, 1 dose, On Thu07/22/23 at 1215 Given 07/22/2023 2:41 PM EST 800 mg leucovorin calcium 800 mg in D5W 250 mL INFUSION 800 mg (rounded from 808 mg = 400 mg/m2 2.02 m2 Treatment Plan BSA from Recorded weight), IV Piggyback, ONCE, 1 dose, On Thu07/22/23 at 1215, Administer over 120 Minutes, Before 5-FU Start Infusion 07/22/2023 12:19 PM EST 800 mg 125 mL/hr Oxaliplatin (Eloxatin) 172 mg in D5W 500 mL infusion 172 mg (rounded from 171.7 mg = 85 mg/m2 2.02 m2 Treatment Plan BSA from Recorded weight), IV Piggyback, ONCE, 1 dose, On Thu07/22/23 at 1215, Administer over 120 Minutes, Flush with D5W only! Start Infusion 07/22/2023 12:19 PM EST 172 mg 250 mL/hr Palonosetron (Aloxi) inj SOLN 0.25 mg 0.25 mg, IV Push, ONCE, On Thu07/22/23 at 1215, For 1 dose, Restricted per S antiemetic guidelines Given 07/22/2023 11:50 AM EST 0.25 mg documented in this encounter Advance Directives Latest Code Status on File Code Status Date Activated Date Inactivated Comments No Code 04/29/2022 6:36 AM 04/29/2022 12:43 PM This order reflects the patients wishes and were consensually agreed upon. Question Answer Comments Discussion of Advance Directives occurred with: Patient Does the patient have a Living Will? No Does the patient have Health Care Power of Weighmaster Lead? No Code Status History Code Status Date Activated Date Inactivated Comments No Code 04/15/2022 8:25 AM 04/15/2022 2:57 PM This order reflects the patients wishes and were consensually agreed upon. Question Answer Comments Discussion of Advance Directives occurred with: Patient Does the patient have a Living Will? No Does the patient have Health Care Power of Weighmaster Lead? No Care Teams Non Categorical Preschool Teacher Relationship Specialty Start Date End Date Shamir Núñez DO [address] [place] [address] [place] [address] PCP - General Family Medicine 03/29/22 documented as of this encounter
--- OUTSIDE RECORDS SUMMARY | 2023-07-26 10:31 | External Medical Summary | Summary of Care ---
Author Name Unknown Organization [facility] Address [address] [place] [address] Phone [phone] Care Team Providers Care Workforce Management Consultant Name Role Phone Shamir Núñez Primary Care Provi romi Encounter Details Date Type Department Care Team (Late st Contact Info) Description 07/21/2023 Orders Only [facility] [address] [place] [address] Malathi Huntley MD [address] [place] [address] Allergies No known active allergiesdocumented as of this encounter (statuses as of 07/21/2023) Medications Medication Sig Dispensed Refills Start Date [...] TO ACCESSING. 30 g 1 06/12/2023 Active Hospital, Clinic, or Other Facility Administered Medication Ordered Dose Route Frequency Start Date End Date Status Fluorouracil (5-Fu) 4,850 mg in NSS 138 mL infusion 4850 mg IV CONTINUOUS 07/21/2023 07/23/2023 Active documented as of this encounter (statuses as of 07/21/2023) Active Problems Problem Noted Date Diagnosed Date Encounter for antineoplastic chemotherapy 2022 Secondary malignant neoplasm of liver 06/02/2023 Malignant neoplasm of lower third of esophagus 1 08/01/2022 Cancer Staging:Clinical stage from 06/04/2023:Stage IVB(cM1, G2) - Unsigned documented as of this encounter (statuses as of 07/21/2023) Social History Tobacco Use Types Packs/Day Years [...] Upcoming Encounters Date Type Department Care Team (Latest Contact Info) Description 07/22/2023 11:30 AM EST Hem/Onc Treatment Hematology/Oncolog y Treatment, [place] [address] [place] [address] Karen, Chair 2 Hem Onc [place] [address] [place] [address] Encounter for antineoplastic chemotherapy*; Malignant 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); Secondary malignant neoplasm of liver (HCC) 08/03/2023 9:30 AM EST Laboratory Laboratory [facility] Talha Jones [address] [place] [phone] Karen, Lab [place] [address] [place] [address] 08/04/2023 8:00 AM EST Office Visit [facility] [place] [address] [place] [address] Shalom Nguyen MD [address] [place] [address] 08/04/2023 8:30 AM EST Hem/Onc Treatment Hematology/Oncolog y Treatment, [place] [address] [place] [address] Karen, Chair 7 Hem Onc [place] [address] [place] [address] Health Maintenance Due Date Last Done Comments [...] this encounter Medical Devices Implanted Type Area Bindery Library Technical Assistant Device Identifier Shelf Expiration Date Model / Serial / Lot Lens Intraoc 20.5 - [id number] - [id number] Implanted:Qty : 1 on 04/15/2022 by Albert Dasilva MD at OR [facility] Left: Eye [employer] 01/23/2027 [id number] / [id number] / [id number] Lens Intraoc 20.0 - [id number] - [id number] Implanted:Qty : 1 on 04/29/2022 by Albert Dasilva MD at OR [facility] Right: Eye [employer]OM[employer] 12/24/2026 [id number] / [id number] / [id number] Port Implant W/8f Poly Cath - [id number] Implanted:Qty : 1 on 07/01/2023 by Gio Delgado Jr., MD at OR [facility] Right: Chest CR BARD : PERIPHERAL VASCULAR [id number] 12/24/2024 [id number] / / [id number] documented as of this encounter Advance Directives [...] the patient have Health Care Power of Lime Plant Operator? No Code Status History Code Status Date Activated Date Inactivated Comments No Code 04/15/2022 8:25 AM 04/15/2022 2:57 PM This order reflects the patients wishes and were consensually agreed upon. Question Answer Comments Discussion of Advance Directives occurred with: Patient Does the patient have a Living Will? No Does the patient have Health Care Power of Lime Plant Operator? No Care Teams Workforce Management Consultant Relationship Specialty Start Date End Date Shamir Núñez DO [address] [place] [address] [place] [address] PCP - General Family Medicine 03/29/22 documented as of this encounter
--- OUTSIDE RECORDS SUMMARY | 2023-07-26 10:31 | External Medical Summary | Summary of Care ---
Author Name Unknown Organization [facility] Address [address] [place] [address] Phone [phone] Care Team Providers Care Collision Estimator Name Role Phone Shamir Núñez DO Primary Care Provi romi Reason for Visit * Reason Comments Outpatient Testing Encounter Details Date Type Department Care Team (Late st Contact Info) Description 07/21/2023 9:30 AM EST Laboratory Laboratory [facility] [address] [place] [address] [facility] Scene [address] [place] [address] Malignant neoplasm of lower third of esophagus [...] Care Team (Late st Contact Info) Description 07/22/2023 11:30 AM EST [facility] [address] [place] [address] Karen, Chair 2 Hem On[address] [place] [address] 08/03/2023 9:30 AM EST Laboratory Laboratory [facility] [place] [address] [facility] [place] [phone] Karen, Lab [facility] [address] [facility] [place] [address] 08/04/2023 8:00 AM EST Office Visit Hematology/Oncology [facility] [place] [address] [facility] [place] [address] Shalom Nguyen MD [address] [facility] [place] [address] 08/04/2023 8:30 AM EST Hem[facility] [address] [place] [address] Karen, Chair 7 Hem Onc [facility] [place] [address] Pending Results Name Type Priority Associated Diagnoses Date /Time COMPREHENSIVE METABOLIC PANEL Lab STAT Malignant 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) Secondary malignant neoplasm of liver (HCC) 07/21/2023 9:27 AM EST Health Maintenance Due Date Last Done Comments Lipid Panel 1953 Depression Screening 1965 Hepatitis C Screening 1971 DTaP,Tdap,and Td Vaccines (1 - Tdap) 1972 Cologuard 1998 Colonoscopy 1998 Sigmoidoscopy 1998 Zoster Vaccines (1 of 2) 2003 Hepatitis B (1 of 3 - Risk 3-dose series) 2013 COVID-19 Vaccine ( season) 2023 06/22/2023, 07/11/2022, 03/10/2022, Additional history exists Influenza Vaccine (FLU shot) [...] this encounter Medical Devices Implanted Type Area Debate Director Device Identifier Shelf Expiration Date Model / Serial / Lot Lens Intraoc 20.5 - [id number] - [id number] Implanted:Qty : 1 on 04/15/2022 by Albert Dasilva MD at OR [facility] Left: Eye [employer]OM[employer] 01/23/2027 [id number] / [id number] / [id number] Lens Intraoc 20.0 - [id number] - [id number] Implanted:Qty : 1 on 04/29/2022 by Albert Dasilva MD at OR [facility] Right: Eye [employer]OMB 12/24/2026 [id number] / [id number] / [id number] Port Implant W/8f Poly Cath - [id number] Implanted:Qty : 1 on 07/01/2023 by Gio Delgado Jr., MD at OR [facility] Right: Chest CR BARD : PERIPHERAL VASCULAR [id number] 12/24/2024 [id number] / / [id number] documented as of this encounter Procedures Procedure Name Priority Date/Time Associated Diagnosis Comments DIFFERENTIAL, AUTOMATED STAT 07/21/2023 9:27 AM EST Malignant 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) Secondary malignant neoplasm of liver (HCC) CBC STAT 07/21/2023 9:27 AM EST Malignant 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) Secondary malignant neoplasm of liver (HCC) CBC STAT 07/21/2023 9:27 AM EST Malignant 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) Secondary malignant neoplasm of liver (HCC) documented in this encounter Results * (ABNORMAL) DIFFERENTIAL, AUTOMATED (07/21/2023 9:27 AM EST) WBC 4.81 4.00 - 10.80 K/uL 07/21/2023 9:33 AM EST [facility] Neutrophils % 58.9 40.0 - 75.0 % 07/21/2023 9:33 AM EST [facility] Lymphocytes % 24.9 18.0 - 42.0 % 07/21/2023 9:33 AM EST [facility] Monocytes % 14.3(H) 1.0 - 11.0 % 07/21/2023 9:33 AM EST [facility]02 Eosinophils % 1.5 0.0 - 6.0 % 07/21/2023 9:33 AM EST [facility] Basophils % 0.4 0.0 - 2.0 % 07/21/2023 9:33 AM EST [facility]02 Absolute Neutrophils 2.83 1.80 - 7.70 K/uL 07/21/2023 9:33 AM EST [facility] Absolute Lymphocytes 1.20 1.00 - 4.80 K/ul 07/21/2023 9:33 AM [facility] 56 Absolute Monocytes 0.69 0.00 - 1.10 K/uL 07/21/2023 9:33 AM [facility] 56- Absolute Eosinophils 0.07 0.00 - 0.70 K/uL 07/21/2023 9:33 AM [facility] 56 Absolute Basophils 0.02 0.00 - 0.20 K/uL 07/21/2023 9:33 AM [facility] 56 Blood Venous blood specimen / Unknown Venipuncture / Unknown 07/21/2023 9:27 AM EST 07/21/2023 9:27 AM EST Shalom Nguyen MD LAB BLOOD ORDERABLES [facility] [address] [place] [address] * (ABNORMAL) CBC (07/21/2023 9:27 AM EST) WBC 4.81 4.00 - 10.80 K/uL 07/21/2023 9:33 AM [facility] RBC 4.52 4.50 - 5.25 M/uL 07/21/2023 9:33 AM [facility] HGB 12.7(L) 14.0 - 16.8 g/dL 07/21/2023 9:33 AM [facility] HCT 38.9(L) 40.0 - 48.4 % 07/21/2023 9:33 AM [facility] 56 MCV 86.1 82.0 - 99.5 fL 07/21/2023 9:33 AM [facility] 56 MCH 28.1 27.0 - 34.0 pg 07/21/2023 9:33 AM [facility] MCHC 32.6 32.0 - 36.0 g/dL 07/21/2023 9:33 AM [facility] 56 RDW 13.5 11.5 - 15.5 % 07/21/2023 9:33 AM [facility] PLT 224 140 - 400 K/uL 07/21/2023 9:33 AM [facility] MPV 9.8 6.6 - 11.1 fL 07/21/2023 9:33 AM [facility] Blood Venous blood specimen / Unknown Venipuncture / Unknown 07/21/2023 9:27 AM EST 07/21/2023 9:27 AM EST Shalom Nguyen MD LAB BLOOD ORDERABLES [facility] [address] [place] [address] documented in this encounter Visit Diagnoses Diagnosis Malignant 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) Malignant neoplasm of lower third of esophagus Secondary malignant neoplasm of liver (HCC) Secondary malignant neoplasm of liver documented in this encounter Advance Directives Latest Code Status on File Code Status Date Activated Date Inactivated Comments No Code 04/29/2022 6:36 AM 04/29/2022 12:43 PM This order reflects the patients wishes and were consensually agreed upon. Question Answer Comments Discussion of Advance Directives occurred with: Patient Does the patient have a Living Will? No Does the patient have Health Care Power of Toaster Operator? No Code Status History Code Status Date Activated Date Inactivated Comments No Code 04/15/2022 8:25 AM 04/15/2022 2:57 PM This order reflects the patients wishes and were consensually agreed upon. Question Answer Comments Discussion of Advance Directives occurred with: Patient Does the patient have a Living Will? No Does the patient have Health Care Power of Toaster Operator? No Care Teams Collision Estimator Relationship Specialty Start Date End Date Shamir Núñez DO [address] [place] [address] [place] [address] PCP - General Family Medicine 03/29/22 documented as of this encounter
--- OUTSIDE RECORDS SUMMARY | 2023-07-26 10:31 | External Medical Summary ---
Author Name Unknown Address Unknown Organization K09:[facility] [address] [place] [address] Laboratory Report Ordering Provider Test Date Status JUAN SHARMA 07/21/2023 09:27:49 Final Observation Date Value Abnormality Reference (Units ) Status BUN 07/21/2023 09:27:49 12 6-20 (mg/dL) Final Creatinine 07/21/2023 09:27:49 1.2 0.6-1.2 (mg/dL) Final Glomerular filtration rate/1.73 sq M.predicted [Volume Rate/Area] in Serum, Plasma or Blood by Creatinine-based formula (CKD-EPI) 07/21/2023 09:27:49 67 >=60 (mL/min) Final eGFR is calculated based on the CKD-EPI 2020 equation SODIUM 07/21/2023 09:27:49 136 135-146 (m mol/L) Final Potassium 07/21/2023 09:27:49 4.7 3.5-5.1 (m mol/L) Final Cl 07/21/2023 09:27:49 100 98-107 (mm ol/L) Final CO2 07/21/2023 09:27:49 26 22-32 (mmo l/L) Final Anion gap 07/21/2023 09:27:49 10 7-15 (mmol /L) Final Glucose 07/21/2023 09:27:49 102 70-120 (mg /dL) Final Albumin 07/21/2023 09:27:49 3.6 Below low normal 3.8 -5.0 (g/dL) Final AST (Aspartate aminotransferase) 07/21/2023 09:27:49 26 10-50 (U/L) Fin al Alk Phos 07/21/2023 09:27:49 93 35-130 (U/ L) Final Bilirubin, Total 07/21/2023 09:27:49 0.4 <=1 .2 (mg/dL) Final Calcium 07/21/2023 09:27:49 9.1 8.4-10.2 ( mg/dL) Final Protein 07/21/2023 09:27:49 7.4 6.0-8.3 (g /dL) Final ALT (Alanine aminotransferase) 07/21/2023 09:27:49 <5 Below low normal 10-50 (U/L) Final Performing Location [facility] [address] [place] [address]
[2023-07-26] MEDS ORDERED: SODIUM CHLORIDE 0.9% 1,000 ML IV SCH (10:45)
--- NOTE | 2023-07-26 10:47 | Emergency Department Note ---
History of Present Illness General Chief complaint: Syncope Time Seen by Provider: 07/26/23 10:36 Source: patient, family (I did talk to multiple family members who did arrive) and old records reviewed (I reviewed a discharge summary from 05-10-2023. The patient had been admitted for syncope) Mode of arrival: EMS Limitations: no limitations History of Present Illness This patient is a 68-year-old male comes in after a syncopal episode. 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 He also has history of PE and is on Eliquis. He said he was feeling fine was at a store today and started getting lightheaded and slight nausea he passed out. He denies that he was diaphoretic at first but then became diaphoretic slightly. Denies chest pain shortness of breath or palpitations no focal numbness weakness no difficulty speaking or swallowing acutely. He did hit his head but denies headache or any other injuries no neck pain or stiffness. No change in vision. No abdominal pain. Home Medications Medication Instructions Recorded Confirmed Type apixaban 5 mg tablet (Eliquis) 5 mg PO BID 30 days #60 tabs 06/16/23 07/26/23 Rx ondansetron HCl 8 mg tablet 8 mg PO Q8H PRN Nausea And Vomiting 07/14/23 07/26/23 History prochlorperazine maleate 10 mg 10 mg PO Q6H PRN Nausea And 07/14/23 07/26/23 History tablet (Compazine) Vomiting acetaminophen 500 mg tablet 500 mg PO Q6H PRN pain/fever 07/26/23 07/26/23 History pseudoephedrine HCl 30 mg tablet 30 mg PO Q6H PRN Congestion 07/26/23 07/26/23 History (Sudafed) Allergies Allergy/AdvReac Type Severity Reaction Status Date / Time No Known Allergies Allergy Verified 07/26/23 14:50 Past Med/Surg History Medical History Chronic anticoagulation Port-A-Cath in place 07/01/23 Lesion of liver 06/02, will be getting CT scan of liver Gallstones History of hypertension recently taken off of his medications GERD (gastroesophageal reflux disease) History of recent hospitalization 05/10/23-05/12/23, [facility], went to the ER and found that kidneys were on functioning at 50% due to his "blood pressure medications" and dehydration. Surgical History Hx of tooth extraction multiple time, removed under anesthesia Hx of bilateral cataract extraction Family History Sister Hypertension Mother , 71yo Deep vein thrombosis "Left loose in her leg" postop Father , 61yo Accident Logging accident Brother Diabetes Complications of DM; Sister Cancer Pt unsure of type of cancer Sister Cancer Pt unsure of type of cancer Sister Cancer Pt unsure of type of cancer Daughter No problems noted. Son No problems noted. Son No problems noted. 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 How many Children do You have: 3 Feels Safe at Home: Yes Childhood Exposure to Second-Hand Smoke: No Diet: regular caffeine: Yes (1 cup coffee/day) during the past year weight has: decreased > 10 lbs Dental Care, Regularly: No Physical Activity Frequency: Daily Physical Activity Frequency Comment: walking Seatbelt Use: sometimes Sunscreen Use: No Gender Identity: Male Review of Systems A total of 10 systems reviewed and were otherwise negative Physical Exam Vital Signs Vital Signs - 24 hr 07/26/23 10:05 07/26/23 10:05 07/26/23 10:38 Temperature 36.8 C Temperature Source Oral Pulse Rate 68 63 Pulse Rate from SpO2 Sensor 60 Pulse Rhythm Regular Pulse Strength Normal Respiratory Rate 20 14 Respiratory Effort / Characteristics Non-Labored Spontaneous Respiratory Depth Normal Respiratory Pattern Regular Blood Pressure 123/76 Blood Pressure Mean 91 Pulse Oximetry 98 96 96 Oxygen Delivery Method Room Air Room Air Sepsis Recent Fever Within 48 Hours No Sepsis New/Unexplained Change in Mental Status No Sepsis Action Taken by Nursing No Action Required 07/26/23 10:44 07/26/23 11:00 07/26/23 11:00 Temperature Temperature Source Pulse Rate 64 57 L Pulse Rate from SpO2 Sensor 57 L Pulse Rhythm Regular Pulse Strength Respiratory Rate 18 16 Respiratory Effort / Characteristics Respiratory Depth Respiratory Pattern Blood Pressure 127/76 Blood Pressure Mean 92 Pulse Oximetry 92 99 Oxygen Delivery Method Room Air Sepsis Recent Fever Within 48 Hours Sepsis New/Unexplained Change in Mental Status Sepsis Action Taken by Nursing 07/26/23 11:35 07/26/23 11:37 07/26/23 11:37 Temperature Temperature Source Pulse Rate 59 L 60 Pulse Rate from SpO2 Sensor 57 L Pulse Rhythm Pulse Strength Respiratory Rate 17 15 Respiratory Effort / Characteristics Respiratory Depth Respiratory Pattern Blood Pressure 148/87 H Blood Pressure Mean 116 Pulse Oximetry 99 Oxygen Delivery Method Sepsis Recent Fever Within 48 Hours Sepsis New/Unexplained Change in Mental Status Sepsis Action Taken by Nursing 07/26/23 12:00 07/26/23 12:00 07/26/23 12:33 Temperature Temperature Source Pulse Rate 51 L 77 Pulse Rate from SpO2 Sensor 52 L 61 Pulse Rhythm Pulse Strength Respiratory Rate 16 16 Respiratory Effort / Characteristics Respiratory Depth Respiratory Pattern Blood Pressure 154/89 H Blood Pressure Mean 110 Pulse Oximetry 98 100 Oxygen Delivery Method Sepsis Recent Fever Within 48 Hours Sepsis New/Unexplained Change in Mental Status Sepsis Action Taken by Nursing 07/26/23 12:33 07/26/23 12:54 07/26/23 13:00 Temperature Temperature Source Pulse Rate 55 L 56 L Pulse Rate from SpO2 Sensor 56 L Pulse Rhythm Pulse Strength Respiratory Rate 17 Respiratory Effort / Characteristics Respiratory Depth Respiratory Pattern Blood Pressure 132/87 Blood Pressure Mean 102 Pulse Oximetry 98 Oxygen Delivery Method Sepsis Recent Fever Within 48 Hours Sepsis New/Unexplained Change in Mental Status Sepsis Action Taken by Nursing 07/26/23 13:00 Temperature Temperature Source Pulse Rate Pulse Rate from SpO2 Sensor Pulse Rhythm Pulse Strength Respiratory Rate Respiratory Effort / Characteristics Respiratory Depth Respiratory Pattern Blood Pressure 153/97 H Blood Pressure Mean 119 Pulse Oximetry Oxygen Delivery Method Sepsis Recent Fever Within 48 Hours Sepsis New/Unexplained Change in Mental Status Sepsis Action Taken by Nursing General: Well developed well nourished older male who appears in no acute distress, breathing comfortably on room air. Normal speech HEENT: Normal cephalic atraumatic frontal scalp. No laceration. Pupils are equal round and reactive to light. Extraocular movements are intact. Oropharynx is pink with moist mucous membranes. No swelling of the mouth lips or tongue. Neck: Supple with a midline trachea. No meningeal signs or stiffness, no JVD or bruits. No Stridor. Chest: Clear to auscultation bilaterally. No wheezes or rhonchi. No increased work of breathing. A port in right chest. Heart: Regular rate and rhythm without murmurs or gallops. Abdomen: Soft nontender, nondistended without rebound guarding or rigidity. Extremities: No cyanosis clubbing or edema. No calf tenderness or assymetry Spine/Back. Non tender to palpation. No CVA tenderness Skin: Good turgor without rashes. Neurologic exam: Cranial nerves two through 12 are intact. Motor and sensation are intact and symmetrical throughout. With exception of a small hematoma left Procedures Free Text Procedures The patient was placed in observation status at 10:49 on 07/26/23 for cardiac evaluation/arrhythmia/syncope. During the time in observation, the patient was frequently reassessed and received continuous cardiac monitoring, cardiac biomarkers x 2, EKG, CAT scan on Final reassessment the patient cardiac workup is thus far unremarkable however given his complex medical history I do think he should be further admitted/observed in the hospital for syncope and the patient will be added at 13:44 on 07/26/23. A total observation time of 2 hours and 55- minutes. Course Administered Medications Lactated Ringer's (Lr) 1,000 mls @ 100 mls/hr IV .Q10H BIRGIT Stop: 07/27/23 00:29 Last Admin: 07/26/23 15:12 Dose: 100 mls/hr Documented By: LOGAN Discontinued Medications Sodium Chloride (Nss) 1,000 mls @ 999 mls/hr IV .Q1H1M BIRGIT Stop: 07/26/23 11:45 Last Infusion: 07/26/23 13:47 Dose: Infused Documented By: Admin: 07/26/23 11:06 Dose: 999 mls/hr Documented By: LOGAN Ioversol (Optiray 320 125ml) 117 ml IV ONCE ONE Stop: 07/26/23 12:26 Last Admin: 07/26/23 12:25 Dose: 117 ml Documented By: CHECO Medical Decision Making Differential Diagnosis Syncope, electrolyte or metabolic abnormality, dehydration, medication side effect, arrhythmia, closed head injury, PE, cardiac disease, infection, anemia Medical Records Attestation: I reviewed the patient's medical records. Home Medications Current Medication List: was personally reviewed by me Laboratory Data Attestation: I reviewed the patient's lab results. 07/26/23 10:49 07/26/23 10:49 Lab Results 07/26/23 07/26/23 07/26/23 Range/Units 10:49 11:35 12:16 WBC 1.86 L (4.8-10.8) K/ul RBC 4.75 (4.70-6.10) M/uL Hgb 12.9 L (14.0-18.0) g/dl Hct 39.4 L (42.0-52.0) % MCV 82.9 (80.0-100.0) fL MCH 27.2 (25.0-34.0) pg MCHC 32.7 (32.0-36.0) g/dL RDW Std Deviation 38.8 (36.4-46.3) fL RDW Coeff of Michael 12.9 (11.5-14.5) % Plt Count 181 (130-400) K/uL MPV 10.1 (9.4-12.4) fL Immature Gran % (Auto) 0.0 % Neut % (Auto) 60.2 % Lymph % (Auto) 32.3 % Duchesne % (Auto) 2.7 % Eos % (Auto) 4.3 % Baso % (Auto) 0.5 % Neut # (Auto) 1.12 L (1.40-6.50) K/uL Lymph # (Auto) 0.60 L (1.20-3.40) K/uL Duc[place]ne # (Auto) 0.05 L (0.11-0.59) K/uL Eos # (Auto) 0.08 (0.00-0.50) K/uL Baso # (Auto) 0.01 (0.00-0.20) K/uL Immature Gran # (Auto) 0.00 L (0.01-0.20) K/uL PT Cancelled 11.9 INR Cancelled 1.1 APTT Cancelled 29 PTT Ratio Cancelled 1.0 Sodium 133 L (136-145) mmol/L Potassium 4.2 (3.5-5.1) mmol/L Chloride 101 (98-107) mmol/L Carbon Dioxide 26 (21-32) mmol/L Anion Gap 6 (3-11) BUN 14 (6-23) mg/dl Creatinine 0.93 (0.6-1.4) mg/dl Est Cr Clr Drug Dosing 73.9 ml/min Est GFR ( Amer) 96.1 ml/min Est GFR (Non-Af Amer) 82.9 ml/min BUN/Creatinine Ratio 15.1 (10-20) Glucose 117 H (70-99(Fasting)) mg/dl Calcium 8.5 L (8.6-10.3) mg/dl Magnesium 2.2 (1.7-2.4) mg/dl Total Bilirubin 0.5 (0.2-1.0) mg/dl AST 23 (13-39) U/L ALT 12 (7-52) U/L Alkaline Phosphatase 75 (34-104) U/L Troponin I High Sens 3.9 4.1 (0-20) pg/ml Total Protein 7.3 (6.0-8.3) gm/dl Albumin 3.5 (3.4-5.0) gm/dl Globulin 3.8 (2.5-4.0) gm/dl Albumin/Globulin Ratio 0.9 (0.9-2) Urine Color Dark Yellow Urine Appearance Clear (Clear) Urine pH 6.0 (4.5-7.5) Ur Specific Beaman 1.018 (1.000-1.030) Urine Protein 1+ H (Negative) Urine Glucose (UA) Negative (Negative) Urine Ketones Trace H (Negative) Urine Blood Negative (Negative) Urine Nitrite Negative (Negative) Urine Bilirubin Negative (Negative) Urine Urobilinogen Negative (Negative) Ur Leukocyte Esterase Negative (Negative) Urine WBC (Auto) 1-5 (0-5) /hpf Urine RBC (Auto) 0-4 (0-4) /hpf U Hyaline Cast (Auto) 5-10 H (0-5) /lpf U Epithel Cells (Auto) >30 H (0-5) /lpf Urine Bacteria (Auto) Negative (Negative) Imaging Data Attestation: I personally reviewed and interpreted this imaging study as follows: My Impression: Head CTno acute mass affect or hemorrhage seen Chest x-kenton port in place. No acute infiltrate, failure, pneumothorax as per my independent interpretation. Radiologist's Impression: Chest X-Ray 07/26/23 10:45 SINGLE VIEW CHEST CLINICAL HISTORY: Syncope FINDINGS: 2 AP, portable, upright chest radiographs are compared to chest x-ray and chest CT dated 06/05/2023. A right internal jugular central venous infusion port is new from previous. The cardiomediastinal silhouette is top normal for projection. There is mild bibasilar scarring/atelectasis. No airspace consolidation or large pleural effusion is identified. No pneumothorax is seen. The skeletal structures are osteopenic. The bony thorax is grossly intact. IMPRESSION: No acute cardiopulmonary abnormality. ACT 112: Negative or not required by law. Electronically signed by: Son Domingo M.D. 07/26/2023 11:[address] 07/26/23 10:45 CT SCAN OF THE BRAIN WITHOUT IV CONTRAST CLINICAL HISTORY: Syncope. COMPARISON STUDY: No priors. TECHNIQUE: Unenhanced axial CT scan of the brain is performed from the vertex to the skull base. A dose lowering technique was utilized adhering to the principles of ALARA. CT DOSE: 625.8 mGy.cm FINDINGS: Brain parenchyma: There is age-related involutional change noting mild subcortical and periventricular microangiopathic disease. There is no hemorrhage, mass effect, or evidence of acute territorial ischemia by CT criteria. [place]-white matter differentiation is preserved. No extra-axial fluid collection is seen. Ventricles, sulci, cisterns: Prominent secondary to involutional change. Intracranial vasculature: There is atherosclerotic calcification of the cavernous carotid arteries. Calvarium: The skeletal structures are osteopenic. No depressed calvarial fracture is seen. Soft tissues: A tiny metallic foreign body is noted in the frontal scalp. Sinuses and mastoids: The visualized paranasal sinuses are clear. The mastoid air cells are well pneumatized. Orbits: The bony orbits are grossly intact. There are bilateral ocular lens implants. IMPRESSION: There is no hemorrhage, mass effect, or evidence of acute territorial ischemia by CT criteria. ACT 112: Negative or not required by law. Electronically signed by: Son Domingo M.D. 07/26/2023 11:35 AM Chest CTA 07/26/23 12:01 CT ANGIOGRAM OF THE CHEST CLINICAL HISTORY: Atypical chest pain. Syncope. Esophageal cancer. COMPARISON STUDY: Chest CT dated 06/05/2023. Chest x-ray dated 07/26/2023. PET/CT dated 06/16/2023. TECHNIQUE: Following the IV administration of 117 cc of Optiray 320, CT angiogram of the chest was performed from the upper abdomen to the thoracic inlet utilizing the pulmonary embolus protocol. Images are reviewed in the axial, sagittal, and coronal planes. 3-D MIPS images are created and assessed. IV contrast was administered without complication. A dose lowering technique was utilized adhering to the principles of ALARA. CT DOSE: 655.12 mGy.cm FINDINGS: Thyroid: Imaged portions of the thyroid gland are normal in size and attenuation. Thoracic aorta: There is mild atherosclerotic calcification of the thoracic aorta, which is normal in caliber and demonstrates 4-vessel variant arch anatomy. No dissection is seen. Pulmonary vasculature: The pulmonary trunk is normal in caliber. There are no filling defects identified in the main, lobar, or segmental pulmonary arteries to indicate pulmonary embolus. Heart: A right internal jugular central venous infusion port is in place. The heart is top normal in size noting trace pericardial effusion. The coronary arteries are densely calcified. Lungs and pleural spaces: There is no airspace consolidation or pleural effusion. The trachea and central airways are clear. Scarring/atelectasis is noted at the lung bases. Mediastinum: Enlarged paraesophageal lymph nodes have modestly decreased in size from previous. A right paraesophageal node on image #66 measures up to 10 mm (previously measured 12 mm). Ivelisse: Clear. Axillae: There is no axillary lymphadenopathy. Esophagus: A large mass lesion of the distal esophagus appears modestly decreased in size as compared to previous. This is best seen on axial image #79. Upper abdomen: A 2.0 cm cyst is seen in the right hepatic lobe. There are at least 5 hepatic metastases again noted. These measure up to 5.5 cm A large node just below the gastroesophageal junction on image #45 measures 3.9 x 1.8 cm. Skeletal structures: The skeletal structures are osteopenic. Degenerative change is noted in the shoulders and spine. No lytic or blastic bony lesions are seen. IMPRESSION: 1. There is no evidence of pulmonary embolus in the main, lobar, or segmental pulmonary arteries. Pulmonary emboli seen on 06/05/2023 have resolved. 2. A large esophageal mass lesion is again noted. This has modestly decreased in size compared to 06/05/2023. 3. Metastatic paraesophageal, mediastinal, and gastrohepatic lymph nodes have also mildly decreased in size from previous. 4. Hepatic metastatic disease has not appreciably changed. 5. There is no airspace consolidation or pleural effusion. 6. Additional findings as above. ACT 112: Negative or not required by law. Electronically signed by: Son Domingo M.D. 07/26/2023 12:58 PM ECG Data Attestation: I personally reviewed and interpreted this ECG as follows: Indication: + syncope Rate (beats per minute): 55 Rhythm: + sinus bradycardia ECG Intervals/blocks: + Right Bundle branch block, + Normal QT and + Normal AR ECG Howells: + Normal ECG ST segments: + Normal ST segments ECG Findings: no PACs or no PVCs Comparison ECG Date: from (06/05/2023) Change: no significant change MDM Narrative This patient comes in as described above. He was placed in room A2 was brought in by EMS. I saw him promptly upon arrival. His EKG was unremarkable and shows no significant arrhythmia or ischemia. IV access was established and he was hydrated with a 1 L IV normal saline bolus she does have a port. He has a normal neurologic exam he did hit his head and is on Eliquis in light of this I did do a CAT scan of his head. He denies any seizure. I looked through his records and he was admitted in April for syncope as well at that time he was felt to be dehydrated and they stopped his blood pressure medications. He said he felt fine prior except for started feel little lightheaded this morning. He does have a history of PE as well as malignancy which does complicate the picture as well. Multiple blood test was plain he was placed on a monitor technician. He has remained stable while he was here. His EKG is nonischemic he had 2 negative troponins. CAT scan of his head does not show any hemorrhage or mass effect he has no significant electrolyte or metabolic abnormalities. I did a CT angiography and that was normal there is no evidence of PE or other pathology. The patient had been admitted here in March for syncopal episode at that time they had stopped his blood pressure medications and he had dehydration/prerenal changes. He has none of that today. I am concerned that he passed out he had recent chemo but has been keeping up with his fluids and has not no GI symptoms to attribute this. This may have been an arrhythmia. I have consulted and discussed case at length with Dr. Cortez and the patient will be admitted/observed for these measures Continuous cardiac monitoring: Orders placed in EMR for continuous monitor technician: Upon my evaluation patient noted to be in sinus bradycardia with a rate of 60. Right bundle branch block Impression & Plan Syncope, Esophageal cancer, stage IV, Current use of [employer] anticoagulation, Hx pulmonary embolism Discharge Plan Visit Data Chief Complaint: Syncope ED Provider: Rick Lr Discharge Problem: Syncope, Esophageal cancer, stage IV, Current use of [employer] anticoagulation, Hx pulmonary embolism Discharge Problem: Syncope Qualifiers: Syncope type: unspecified Qualified Code(s): R55 - Syncope and collapse
[2023-07-26 11:30] LABS: Basophils # (auto) 0.01 K/uL (0.00-0.20); Basophils % (auto) 0.5 %; Eosinophils # (auto) 0.08 K/uL (0.00-0.50); Eosinophils % (auto) 4.3 %; Hematocrit (blood only) 39.4 % (42.0-52.0); Hemoglobin 12.9 g/dl (14.0-18.0); Lymphocytes % (auto) 32.3 %; Mean Corpuscular Hemoglobin 27.2 pg (25.0-34.0); Mean Corpuscular Hgb Conc 32.7 g/dL (32.0-36.0); Mean Corpuscular Volume 82.9 fL (80.0-100.0); Mean Platelet Volume 10.1 fL (9.4-12.4); Monocytes # (auto) 0.05 K/uL (0.11-0.59); Monocytes % (auto) 2.7 %; Neutrophils # (auto) 1.12 K/uL (1.40-6.50); Neutrophils % (auto) 60.2 %; Platelet Count 181 K/uL (130-400); RDW Coefficient of Variation 12.9 % (11.5-14.5); RDW Standard Deviation 38.8 fL (36.4-46.3); Red Blood Count 4.75 M/uL (4.70-6.10); White Blood Count 1.86 K/ul (4.8-10.8)
--- NOTE | 2023-07-26 11:37 | CT Scan Report ---
CT SCAN OF THE BRAIN WITHOUT IV CONTRAST CLINICAL HISTORY: Syncope. COMPARISON STUDY: No priors. TECHNIQUE: Unenhanced axial CT scan of the brain is performed from the vertex to the skull base. A do se lowering technique was utilized adhering to the principles of ALARA. CT DOSE: 625.8 mGy.cm FINDINGS: Brain parenchyma: There is age-related involutional change noting mild subcortical and periventricula r microangiopathic disease. There is no hemorrhage, mass effect, or evidence of acute territorial isc hemia by CT criteria. [place]-white matter differentiation is preserved. No extra-axial fluid collection is seen. Ventricles, sulci, cisterns: Prominent secondary to involutional change. Intracranial vasculature: There is atherosclerotic calcification of the cavernous carotid arteries. Calvarium: The skeletal structures are osteopenic. No depressed calvarial fracture is seen. Soft tissues: A tiny metallic foreign body is noted in the frontal scalp. Sinuses and mastoids: The visualized paranasal sinuses are clear. The mastoid air cells are well pneu matized. Orbits: The bony orbits are grossly intact. There are bilateral ocular lens implants. IMPRESSION: There is no hemorrhage, mass effect, or evidence of acute territorial ischemia by CT mitesh mendoza. ACT 112: Negative or not required by law. Electronically signed by: Son Domingo M.D. 07/26/2023 11:35 AM
--- NOTE | 2023-07-26 11:39 | XRay Report ---
SINGLE VIEW CHEST CLINICAL HISTORY: Syncope FINDINGS: 2 AP, portable, upright chest radiographs are compared to chest x-ray and chest CT dated . A right internal jugular central venous infusion port is new from previous. The cardiomedia stinal silhouette is top normal for projection. There is mild bibasilar scarring/atelectasis. No airs pace consolidation or large pleural effusion is identified. No pneumothorax is seen. The skeletal str uctures are osteopenic. The bony thorax is grossly intact. IMPRESSION: No acute cardiopulmonary abnormality. ACT 112: Negative or not required by law. Electronically signed by: Son Domingo M.D. 07/26/2023 11:38 AM
[2023-07-26 11:47] LABS: Albumin Globulin Ratio 0.9 (0.9-2); Albumin Level 3.5 gm/dl (3.4-5.0); BUN Creatinine Ratio 15.1 (10-20); Bilirubin,Total 0.5 mg/dl (0.2-1.0); Calcium 8.5 mg/dl (8.6-10.3); Creatinine Clr Calc Pharmacy 73.9 ml/min; Est GFR (African American) 96.1 ml/min; Est GFR (Non-African American) 82.9 ml/min; Globulin 3.8 gm/dl (2.5-4.0); Magnesium 2.2 mg/dl (1.7-2.4); Potassium 4.2 mmol/L (3.5-5.1); Total Protein 7.3 gm/dl (6.0-8.3)
[2023-07-26 11:54] LABS: Troponin I High Sensitivity 3.9 pg/ml (0-20)
[2023-07-26 12:01] LABS: Appearance Urine Clear (Clear); Bacteria Urine Automated Negative (Negative); Bilirubin Urine Negative (Negative); Blood Urine Negative (Negative); Color Urine Dark Yellow; Epithelial Cell Urine Auto >30 /lpf (0-5); Glucose Urine UA Negative (Negative); Ketones Urine Trace (Negative); Leukocyte Esterase Urine Negative (Negative); Nitrite Urine Negative (Negative); Protein Urine 1+ (Negative); RBC Urine Automated 0-4 /hpf (0-4); Specific Gravity Urine 1.018 (1.000-1.030); Urobilinogen Urine Negative (Negative)
[2023-07-26] MEDS ORDERED: OPTIRAY 320 125ml IV ONE (12:25)
--- NOTE | 2023-07-26 13:00 | CT Scan Report ---
CT ANGIOGRAM OF THE CHEST CLINICAL HISTORY: Atypical chest pain. Syncope. Esophageal cancer. COMPARISON STUDY: Chest CT dated 06/05/2023. Chest x-ray dated 07/26/2023. PET/CT dated 06/16/2023. TECHNIQUE: Following the IV administration of 117 cc of Optiray 320, CT angiogram of the chest was pe rformed from the upper abdomen to the thoracic inlet utilizing the pulmonary embolus protocol. Images are reviewed in the axial, sagittal, and coronal planes. 3-D MIPS images are created and assessed. I V contrast was administered without complication. A dose lowering technique was utilized adhering to the principles of ALARA. CT DOSE: 655.12 mGy.cm FINDINGS: Thyroid: Imaged portions of the thyroid gland are normal in size and attenuation. Thoracic aorta: There is mild atherosclerotic calcification of the thoracic aorta, which is normal in caliber and demonstrates 4-vessel variant arch anatomy. No dissection is seen. Pulmonary vasculature: The pulmonary trunk is normal in caliber. There are no filling defects identif ied in the main, lobar, or segmental pulmonary arteries to indicate pulmonary embolus. Heart: A right internal jugular central venous infusion port is in place. The heart is top normal in size noting trace pericardial effusion. The coronary arteries are densely calcified. Lungs and pleural spaces: There is no airspace consolidation or pleural effusion. The trachea and aurora tral airways are clear. Scarring/atelectasis is noted at the lung bases. Mediastinum: Enlarged paraesophageal lymph nodes have modestly decreased in size from previous. A rig ht paraesophageal node on image #66 measures up to 10 mm (previously measured 12 mm). Ivelisse: Clear. Axillae: There is no axillary lymphadenopathy. Esophagus: A large mass lesion of the distal esophagus appears modestly decreased in size as compared to previous. This is best seen on axial image #79. Upper abdomen: A 2.0 cm cyst is seen in the right hepatic lobe. There are at least 5 hepatic metast ases again noted. These measure up to 5.5 cm A large node just below the gastroesophageal junction on image #45 measures 3.9 x 1.8 cm. Skeletal structures: The skeletal structures are osteopenic. Degenerative change is noted in the shou lders and spine. No lytic or blastic bony lesions are seen. IMPRESSION: 1. There is no evidence of pulmonary embolus in the main, lobar, or segmental pulmonary arteries. Pul monary emboli seen on 06/05/2023 have resolved. 2. A large esophageal mass lesion is again noted. This has modestly decreased in size compared to 04/2023. 3. Metastatic paraesophageal, mediastinal, and gastrohepatic lymph nodes have also mildly decreased i n size from previous. 4. Hepatic metastatic disease has not appreciably changed. 5. There is no airspace consolidation or pleural effusion. 6. Additional findings as above. ACT 112: Negative or not required by law. Electronically signed by: Son Domingo M.D. 07/26/2023 12:58 PM
[2023-07-26 13:02] LABS: INR 1.1 (0.9-1.1); Partial Thromboplastin Time 29 Seconds (21-31); Prothrombin Time 11.9 Seconds (9.0-12.0)
--- NOTE | 2023-07-26 14:01 | History & Physical Report ---
Date of Service July 26, 2023 Assessment & Plan (1) Near syncope: Plan: -Admit to med/tele -Currently stable and asymptomatic -Experienced an episode of near syncope with fall this am while standing in the grocery store -Only symptom prior to the episode was lightheadedness -Did not completely lose consciousness -Patient had previous episode in April which was thought to be due to dehydration and orthostatic hypotension -Has been off antihypertensives since -CT head, chest xray, and CTA chest negative for acute findings -He is mildly bradycardic today -Will obtain TTE to rule out structural causes -Will start BL BETHANY's in case this is recurrent orthostatic hypotension -Monitor am Orthostatic vitals ordered for tomorrow -Continue to monitor on tele -S/P 1L NSS; will give 1L LR on admission -Continue Eliquis for DVT PPX -HH/DMII diet -AM CBC, CMP, Mag, PT/INR (2) Neutropenia: Plan: -Absolute neutrophil count of 1.12 today -Hgb and platelets are stable -Has been afebrile and without infectious symptoms -Likely due to recent chemotherapy -Neutropenic precautions ordered -Monitor AM CBC (3) Hx pulmonary embolism: Plan: -Conitnue ELiquis (4) 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 Schwarz at the time of the admission History of Present Illness Chief Complaint: Syncope Primary Care Provider: Shamir Núñez DO Elais is a 68 year old male with a PMH significant for 68-year-old male with a past medical history including adenocarcinoma of the esophagus with liver mets (currently on Folfox and Opdivo), hx of PE now on Eliquis, hyperlipidemia, DMII, hypertension, and GERD who presented to the [facility] ED on 07/26 after multiple e pisodes of syncope this am. He was noted to be bradycardic with HR in the 50's but was otherwise stable. Labs were significant for a WBC of 1.86, neutrophil count of 1.12, lymphocyte count of 0.60. CT of the head wo con was read as "There is no hemorrhage, mass effect, or evidence of acute territorial ischemia by CT criteria.". Chest xray was negative for acute findigns. CT angiogram of the chest was read as "1. There is no evidence of pulmonary embolus in the main, lobar, or segmental pulmonary arteries. Pulmonary emboli seen on 06/05/2023 have resolved. 2. A large esophageal mass lesion is again noted. This has modestly decreased in size compared to 06/05/2023. 3. Metastatic paraesophageal, mediastinal, and gastrohepatic lymph nodes have also mildly decreased in size from previous. 4. Hepatic metastatic disease has not appreciably changed. 5. There is no airspace consolidation or pleural effusion. 6. Additional findings as above.". Prior to admission the patient was given 1L NSS. The patient was admitted to [facility] from 05/10-05/12 for syncope, dehydration, and STEVE. His episode of syncope was thought to be due to orthostatic hypotension due to dehydration. His STEVE and syncopal symptoms resolved with IV fluids. His lisinopril and HCTZ were discontinued prior to discharge. At the time of the exam the patient was sitting in bed in bed in no acute distress with family sitting bedside. He states that he had his second round of chemotherapy from the -. He woke up this am in his normal state of health. He had a banana and some water for breakfast and went to the grocery store to get coffee with his friend. He states that He was standing and talking with his friend when he suddenly became lightheaded. He denies dizziness, the room spinning, chest pain, palpitations, SOB, abd pain, nausea, vomiting, diarrhea, dysuria, hematuria, melena, or LE swelling prior to or after his fall. He states that he fell to the ground but did not completely lose consciousness. He fell because he was feeling very weak. He did hit the left side of his head. His only prescription medication at this time is Eliquis, he is no longer on antihypertensives. He has also been off medications for DM as he has had significant weight loss with his dysphagia and recent cancer diagnosis. He denies having and changes in his oral intake recently, he has not been eating well for some time as he has been getting full easily. He states that this episode today felt similar to the episode in April when he was last admitted. He is a full code and would want his significant other to make medical decisions for him. Please refer to Dr. Schwarz's attestation for any changes to the treatment plan Allergies Allergy/AdvReac Type Severity Reaction Status Date / Time No Known Allergies Allergy Verified 07/26/23 14:50 Home Medications Medication Instructions Recorded Confirmed Type apixaban 5 mg tablet (Eliquis) 5 mg PO BID 30 days #60 tabs 06/16/23 07/26/23 Rx ondansetron HCl 8 mg tablet 8 mg PO Q8H PRN Nausea And Vomiting 07/14/23 07/26/23 History prochlorperazine maleate 10 mg 10 mg PO Q6H PRN Nausea And 07/14/23 07/26/23 History tablet (Compazine) Vomiting acetaminophen 500 mg tablet 500 mg PO Q6H PRN pain/fever 07/26/23 07/26/23 History pseudoephedrine HCl 30 mg tablet 30 mg PO Q6H PRN Congestion 07/26/23 07/26/23 History (Sudafed) Past Med/Surg History Medical History Chronic anticoagulation Port-A-Cath in place 07/01/23 Lesion of liver 06/02, will be getting CT scan of liver Gallstones History of hypertension recently taken off of his medications GERD (gastroesophageal reflux disease) History of recent hospitalization 05/10/23-05/12/23, [facility], went to the ER and found that kidneys were on functioning at 50% due to his "blood pressure medications" and dehydration. Surgical History Hx of tooth extraction multiple time, removed under anesthesia Hx of bilateral cataract extraction Family History Sister Hypertension Mother , 71yo Deep vein thrombosis "Left loose in her leg" postop Father , 61yo Accident Logging accident Brother Diabetes Complications of DM; Sister Cancer Pt unsure of type of cancer Sister Cancer Pt unsure of type of cancer Sister Cancer Pt unsure of type of cancer Daughter No problems noted. Son No problems noted. Son No problems noted. Denies family history of Ovarian cancer Prostate cancer Myocardial infarction Breast cancer Colorectal cancer Social History Smoking Status: Former smoker Tobacco Type: Cigarettes Age Started Using Tobacco: 17; Age Quit Using Tobacco: 29; Second Hand Exposure: No; Do You Dip or Chew Tobacco: No; Hx Alcohol Use: Yes (quit 1997) Hx Substance Use: No Preferred Language: [place] Communication Ability: Effective Visual Impairment: No Limitations Hearing Ability: Normal Media Clerk Required: No Beliefs That Will Affect Care: None marital status: Single Current Living Situation: Significant Other 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 How many Children do You have: 3 Feels Safe at Home: Yes Childhood Exposure to Second-Hand Smoke: No Diet: regular caffeine: Yes (1 cup coffee/day) during the past year weight has: decreased > 10 lbs Dental Care, Regularly: No Physical Activity Frequency: Daily Physical Activity Frequency Comment: walking Seatbelt Use: sometimes Sunscreen Use: No Gender Identity: Male Physical Exam Physical Exam: Physical Exam: General: In no acute distress, stated age, well-nourished, good hygiene HEENT: Normocephalic, atraumatic, no scleral icterus, pupils around round, symmetrical, and reactive to light, moist mucus membranes, trachea midline, no thyromegaly Chest/Pulm: Mediport located in the right upper chest is without signs of infection, No respiratory distress, symmetrical chest expansion, clear breath sounds throughout Cardiac: bradycardic rate, regular rhythm, no murmurs noted Abdomen: Negative for ascites and bruising, normoactive bowel sounds, soft, non-tender to palpation throughout Musculoskeletal: Symmetrical and without signs of acute trauma, upper and lower extremities with full ROM, no atrophy, spasticity, or flaccidity Extremities: Radial, dorsalis pedis, and posterior tibial pulses are intact and symmetrical, no edema noted in the BL LE's Skin: Warm, dry, no rashes , lesions, or scars noted Neuro: Alert and oriented to person, place, month, year, and president, no focal defects, CN II-XII tested and intact, no tremors noted Psych: No acute distress, calm and cooperative during the exam Results & Data Results & Data Vital Signs (Past 12 Hours) Vital Signs Temp Pulse Resp BP Pulse Ox O2 Del Method 07/26/23 13:00 153/97 H 07/26/23 13:00 56 L 17 98 07/26/23 12:54 55 L 07/26/23 12:33 132/87 07/26/23 12:33 77 16 100 07/26/23 12:00 154/89 H 07/26/23 12:00 51 L 16 98 07/26/23 11:37 60 15 99 07/26/23 11:37 148/87 H 07/26/23 11:35 59 L 17 07/26/23 11:00 127/76 07/26/23 11:00 57 L 16 99 07/26/23 10:44 64 18 92 Room Air 07/26/23 10:38 63 14 96 07/26/23 10:05 96 Room Air 07/26/23 10:05 36.8 C 68 20 123/76 98 Room Air Laboratory Results Abnormal lab results 07/26/23 07/26/23 Range/Units 10:49 11:35 WBC 1.86 L (4.8-10.8) K/ul Hgb 12.9 L (14.0-18.0) g/dl Hct 39.4 L (42.0-52.0) % Neut # (Auto) 1.12 L (1.40-6.50) K/uL Lymph # (Auto) 0.60 L (1.20-3.40) K/uL [place] # (Auto) 0.05 L (0.11-0.59) K/uL Immature Gran # (Auto) 0.00 L (0.01-0.20) K/uL Sodium 133 L (136-145) mmol/L Glucose 117 H (70-99(Fasting)) mg/dl Calcium 8.5 L (8.6-10.3) mg/dl Urine Protein 1+ H (Negative) Urine Ketones Trace H (Negative) U Hyaline Cast (Auto) 5-10 H (0-5) /lpf U Epithel Cells (Auto) >30 H (0-5) /lpf Diagnostic Findings Chest X-Ray 07/26/23 10:45 SINGLE VIEW CHEST CLINICAL HISTORY: Syncope FINDINGS: 2 AP, portable, upright chest radiographs are compared to chest x-ray and chest CT dated 06/05/2023. A right internal jugular central venous infusion port is new from previous. The cardiomediastinal silhouette is top normal for projection. There is mild bibasilar scarring/atelectasis. No airspace consolidation or large pleural effusion is identified. No pneumothorax is seen. The skeletal structures are osteopenic. The bony thorax is grossly intact. IMPRESSION: No acute cardiopulmonary abnormality. ACT 112: Negative or not required by law. Electronically signed by: Son Domingo M.D. 07/26/2023 11:[address] 07/26/23 10:45 CT SCAN OF THE BRAIN WITHOUT IV CONTRAST CLINICAL HISTORY: Syncope. COMPARISON STUDY: No priors. TECHNIQUE: Unenhanced axial CT scan of the brain is performed from the vertex to the skull base. A dose lowering technique was utilized adhering to the principles of ALARA. CT DOSE: 625.8 mGy.cm FINDINGS: Brain parenchyma: There is age-related involutional change noting mild subcortical and periventricular microangiopathic disease. There is no hemorrhage, mass effect, or evidence of acute territorial ischemia by CT criter ia. [place]-white matter differentiation is preserved. No extra-axial fluid collection is seen. Ventricles, sulci, cisterns: Prominent secondary to involutional change. Intracranial vasculature: There is atherosclerotic calcification of the cavernous carotid arteries. Calvarium: The skeletal structures are osteopenic. No depressed calvarial fracture is seen. Soft tissues: A tiny metallic foreign body is noted in the frontal scalp. Sinuses and mastoids: The visualized paranasal sinuses are clear. The mastoid air cells are well pneumatized. Orbits: The bony orbits are grossly intact. There are bilateral ocular lens implants. IMPRESSION: There is no hemorrhage, mass effect, or evidence of acute territorial ischemia by CT criteria. ACT 112: Negative or not required by law. Electronically signed by: Son Domingo M.D. 07/26/2023 11:35 AM Chest CTA 07/26/23 12:01 CT ANGIOGRAM OF THE CHEST CLINICAL HISTORY: Atypical chest pain. Syncope. Esophageal cancer. COMPARISON STUDY: Chest CT dated 06/05/2023. Chest x-ray dated 07/26/2023. PET/CT dated 06/16/2023. TECHNIQUE: Following the IV administration of 117 cc of Optiray 320, CT an giogram of the chest was performed from the upper abdomen to the thoracic inlet utilizing the pulmonary embolus protocol. Images are reviewed in the axial, sagittal, and coronal planes. 3-D MIPS images are created and assessed. IV contrast was administered without complication. A dose lowering technique was utilized adhering to the principles of ALARA. CT DOSE: 655.12 mGy.cm FINDINGS: Thyroid: Imaged portions of the thyroid gland are normal in size and attenuation. Thoracic aorta: There is mild atherosclerotic calcification of the thoracic aorta, which is normal in caliber and demonstrates 4-vessel variant arch anatomy. No dissection is seen. Pulmonary vasculature: The pulmonary trunk is normal in caliber. There are no filling defects identified in the main, lobar, or segmental pulmonary arteries to indicate pulmonary embolus. Heart: A right internal jugular central venous infusion port is in place. The heart is top normal in size noting trace pericardial effusion. The coronary arteries are densely calcified. Lungs and pleural spaces: There is no airspace consolidation or pleural effusion. The trachea and central airways are clear. Scarring/atelectasis is noted at the lung bases. Mediastinum: Enlarged paraesophageal lymph nodes have modestly decreased in size from previous. A right paraesophageal node on image #66 measures up to 10 mm (previously measured 12 mm). Ivelisse: Clear. Axillae: There is no axillary lymphadenopathy. Esophagus: A large mass lesion of the distal esophagus appears modestly decreased in size as compared to previous. This is best seen on axial image #79. Upper abdomen: A 2.0 cm cyst is seen in the right hepatic lobe. There are at least 5 hepatic metastases again noted. These measure up to 5.5 cm A large node just below the gastroesophageal junction on image #45 measures 3.9 x 1.8 cm. Skeletal structures: The skeletal structures are osteopenic. Degenerative change is noted in the shoulders and spine. No lytic or blastic bony lesions are seen. IMPRESSION: 1. There is no evidence of pulmonary embolus in the main, lobar, or segmental pulmonary arteries. Pulmonary emboli seen on 06/05/2023 have resolved. 2. A large esophageal mass lesion is again noted. This has modestly decreased in size compared to 06/05/2023. 3. Metastatic paraesophageal, mediastinal, and gastrohepatic lymph nodes have also mildly decreased in size from previous. 4. Hepatic metastatic disease has not appreciably changed. 5. There is no airspace consolidation or pleural effusion. 6. Additional findings as above. ACT 112: Negative or not required by law. Electronically signed by: Son Domingo M.D. 07/26/2023 12:58 PM ECG Additional Comments: Sinus bradycardia Right bundle branch block Abnormal ECG When compared with ECG of 05-JUN-2023 15:25, No significant change was found Code Status & VTE Plan Code Status Full code VTE Prophylaxis Plan VTE Prophylaxis will be ordered: Yes Supervising Physician Co-Signing Physician Notes Attending addendum: I have physically seen this patient, have supervised the BRANDT's activities, and agree with the H&P unless as otherwise noted. Assessment and Plan: Near syncope- The patient will be admitted to telemetry for serial cardiac enzymes, serial EKG's, cardiac rhythm monitoring and a 2-D echocardiogram with Dopplers. Reports he had near syncope symptoms with following 3 times while the grocery store this morning, without focal weakness Reports that he did not lose consciousness Most recent admission in April 2023 with due to dehydration and orthostasis with improvement in IV fluids CT head, CTA chest, chest x-ray all negative Orthostatic vitals Received 1 L normal saline from the ED Give additional 1 L bolus of LR now, and then maintenance fluids Neutropenia- Associated with chemotherapy recently started for metastatic esophageal adenocarcinoma to intra-abdominal lymph node Placed on neutropenic precautions Diabetes mellitus- Glucose 117 on admission, has been off of medications due to current cancer diagnosis Placed on Accu-Cheks with SSI Remaining orders and notations as noted PG Care Time/CCT Total # of Minutes Spent Total Time Spent with Patient: Total time spent is greater than 50% in coordination of care (as documented) at patient's floor/unit and/or counseling patient: Coding [place] [address] INT INP/OBS CARE 2/MIN Patient Type Established Medical Decision Making Moderate Complexity Diagnoses Near syncope R55 Neutropenia D70.9 Hx pulmonary embolism Z86.711 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
[2023-07-26] MEDS ORDERED: ACETAMINOPHEN 325 MG TAB PO PRN (14:19)
[2023-07-26] MEDS ORDERED: CARBOHYDRATES FOR HYPOGLYCEMIA PO PRN (14:21)
[2023-07-26] MEDS ORDERED: GLUCAGON FOR INJ 1 MG VIAL SQ PRN (14:21)
[2023-07-26] MEDS ORDERED: DEXTROSE 50% 50 ML SYRINGE IV PRN (14:21)
[2023-07-26] MEDS ORDERED: GLUCOSE 40% GEL 15 GM TUBE PO PRN (14:21)
[2023-07-26] MEDS ORDERED: GLUCOSE 10 TAB/TUBE PO PRN (14:21)
[2023-07-26] MEDS ORDERED: LACTATED RINGER'S 1,000 ML IV SCH (14:30)
[2023-07-26] MEDS: INSULIN ASPART PER UNIT CHARGE SC SCH ×2 (20:43→21:23)
[2023-07-26] MEDS: APIXABAN 5 MG TABLET PO SCH (21:21)
[2023-07-26] MEDS ORDERED: ONDANSETRON INJ 2 MG/ML 2 ML VIAL IV PRN (23:36)
[2023-07-27 07:06] LABS: Basophils # (auto) 0.02 K/uL (0.00-0.20); Basophils % (auto) 0.9 %; Eosinophils # (auto) 0.11 K/uL (0.00-0.50); Eosinophils % (auto) 5.2 %; Hematocrit (blood only) 37.6 % (42.0-52.0); Hemoglobin 12.5 g/dl (14.0-18.0); Immature Granulocytes # (auto) 0.02 K/uL (0.01-0.20); Immature Granulocytes % (auto) 0.9 %; Lymphocytes # (auto) 0.84 K/uL (1.20-3.40); Lymphocytes % (auto) 39.4 %; Mean Corpuscular Hemoglobin 27.4 pg (25.0-34.0); Mean Corpuscular Hgb Conc 33.2 g/dL (32.0-36.0); Mean Corpuscular Volume 82.3 fL (80.0-100.0); Mean Platelet Volume 10.3 fL (9.4-12.4); Monocytes % (auto) 4.7 %; Neutrophils # (auto) 1.04 K/uL (1.40-6.50); Neutrophils % (auto) 48.9 %; Platelet Count 176 K/uL (130-400); RDW Coefficient of Variation 12.9 % (11.5-14.5); RDW Standard Deviation 38.7 fL (36.4-46.3); Red Blood Count 4.57 M/uL (4.70-6.10); White Blood Count 2.13 K/ul (4.8-10.8)
[2023-07-27] MEDS: APIXABAN 5 MG TABLET PO SCH (07:06)
[2023-07-27 07:27] LABS: Albumin Globulin Ratio 0.9 (0.9-2); Albumin Level 3.3 gm/dl (3.4-5.0); Bilirubin,Total 0.5 mg/dl (0.2-1.0); Calcium 8.5 mg/dl (8.6-10.3); Creatinine Clr Calc Pharmacy 68.7 ml/min; Est GFR (Non-African American) 75.9 ml/min; Globulin 3.5 gm/dl (2.5-4.0); Magnesium 2.2 mg/dl (1.7-2.4); Potassium 4.4 mmol/L (3.5-5.1); Total Protein 6.8 gm/dl (6.0-8.3)
[2023-07-27 07:37] LABS: Prothrombin Time 11.4 Seconds (9.0-12.0)
[2023-07-27 07:48] LABS: Estimated Average Glucose 131 mg/dl; Hemoglobin A1C 6.2 % (4.5-5.6)
[2023-07-27] MEDS: INSULIN ASPART PER UNIT CHARGE SC SCH ×2 (08:28→12:14)
[2023-07-27 08:46] LABS: Thyroid Stimulating Hormone 2.041 uIu/ml (0.300-4.500)
[2023-07-27 08:48] LABS: T4 Free Thyroxine 1.08 ng/dl (0.61-1.60)
--- NOTE | 2023-07-27 11:38 | Discharge Summary ---
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 He was noted to be bradycardic with HR in the 50's but was otherwise stable. Labs were significant for a WBC of 1.86, neutrophil count of 1.12, lymphocyte count of 0.60. CT of the head wo con was read as "There is no hemorrhage, mass effect, or evidence of acute territorial ischemia by CT criteria.". Chest xray was negative for acute findigns. CT angiogram of the chest was read as "1. There is no evidence of pulmonary embolus in the main, lobar, or segmental pulmonary arteries. Pulmonary emboli seen on 06/05/2023 have resolved. 2. A large esophageal mass lesion is again noted. This has modestly decreased in size compared to 06/05/2023. 3. Metastatic paraesophageal, mediastinal, and gastrohepatic lymph nodes have also mildly decreased in size from previous. 4. Hepatic metastatic disease has not appreciably changed. 5. There is no airspace consolidation or pleural effusion. 6. Additional findings as above.". Prior to admission the patient was given 1L NSS. The patient was admitted to [facility] from 05/10-05/12 for syncope, dehydration, and STEVE. His episode of syncope was thought to be due to orthostatic hypotension due to dehydration. His STEVE and syncopal symptoms resolved with IV fluids. His lisinopril and HCTZ were discontinued prior to discharge. At the time of the exam the patient was sitting in bed in bed in no acute distress with family sitting bedside. He states that he had his second round of chemotherapy from the -. He woke up this am in his normal state of health. He had a banana and some water for breakfast and went to the grocery store to get coffee with his friend. He states that He was standing and talking with his friend when he suddenly became lightheaded. He denies dizziness, the room spinning, chest pain, palpitations, SOB, abd pain, nausea, vomiting, diarrhea, dysuria, hematuria, melena, or LE swelling prior to or after his fall. He states that he fell to the ground but did not completely lose consciousness. He fell because he was feeling very weak. He did hit the left side of his head. His only prescription medication at this time is Eliquis, he is no longer on antihypertensives. He has also been off medications for DM as he has had significant weight loss with his dysphagia and recent cancer diagnosis. He den ies having and changes in his oral intake recently, he has not been eating well for some time as he has been getting full easily. He states that this episode today felt similar to the episode in April when he was last admitted. He is a full code and would want his significant other to make medical decisions for him. Please refer to Dr. Schwarz's attestation for any changes to the treatment plan Principal Diagnosis Orthostatic syncope, sinus bradycardia Discharge Exam General-alert and oriented x3, no fevers, no chills HEENT-head atraumatic and normocephalic, pupils equal and reactive to light, extraocular muscles intact Neck-no lymphadenopathy or thyromegaly, trachea midline Chest-clear to auscultation percussion. No rales wheezing or rhonchi Cardiac-slightly bradycardic regular rate and rhythm, normal S1 and S2 Abdomen-normal bowel sounds, nontender, no hepatosplenomegaly Extremities-no cyanosis, clubbing, or edema Neuro-cranial nerves II through XII intact, motor and sensory function within normal limits, strength symmetrical, no focal deficits Psych-normal affect, normal mood Discharge Data Allergies Allergy/AdvReac Type Severity Reaction Status Date / Time No Known Allergies Allergy Verified 07/26/23 14:50 Consultations 07/26/23 13:44 ED Decision to Admit Stat Ordered Studies 07/26/23 10:45 CT head/brain wo con Stat 07/26/23 12:01 CT angio chest PE protocol Stat Hospital Course (1) Near syncope: Now asymptomatic. Thyroid levels were checked due to mild bradycardia but they are normal. Cardiac echo report is pending. No evidence of acute blood loss anemia. This appears to have been caused by orthostatic hypotension. He was encouraged to maintain adequate hydration. He does not take a diuretic. (2) Neutropenia: Chemotherapy-induced. No intervention at this time. Serial labs (3) Hx pulmonary embolism: Stable. 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 Sliding scale coverage as necessary. Controlled. Continue current medical management Plan Home today, July 27. Encouraged to maintain adequate hydration Total Time Total Time Spent Total Time Spent (In Minutes): 45 minutes Discharge Plan Discharge Items Patient Disposition: Home - Self-Care Reason For Visit: SYNCOPE Discharge Diagnosis: Near syncope due to suspected orthostatic hypotension Activity: Resume your previous activity Non-emergency contact: Primary Care Provider Call non-emergency contact if: your symptoms worsen Follow-up/Referrals: Shamir Núñez, [Primary Care Provider] - Diet: Carb Consistent or DM2 Addtl Attending Provider Instructions: Maintain adequate hydration. All medications remain the same Pending Studies at Discharge: Yes Studies:: Cardiac echo report Stand-Alone Forms: My [employer], Smoking Cessation Medications and DC Order Prescriptions: Continued prochlorperazine maleate [Compazine] 10 mg tablet 10 mg PO Q6H PRN (Reason: Nausea And Vomiting) ondansetron HCl 8 mg tablet 8 mg PO Q8H PRN (Reason: Nausea And Vomiting) Eliquis 5 mg tablet 5 mg PO BID 30 Days Qty: 60 5RF Rx Instructions: Take 5 mg twice a day AFTER completing the 10 mg twice a day (first 7 days) acetaminophen [Tylenol Ex Str Rapid Release] 500 mg Tablet 500 mg PO Q6H PRN (Reason: pain/fever) pseudoephedrine HCl [Sudafed] 30 mg Tablet 30 mg PO Q6H PRN (Reason: Congestion) Discharge Orders: Discharge Order (Routine); Ordered 07/27/23 Ordered By: Rocky Miller Admission Data Admit Date/Time: 07/26/23 14:01 Attending Provider: Rocky Miller Admit Provider: Dionisio Schwarz Primary Care Provider: Shamir Núñez Other Providers: Dionisio Schwarz Coding Level of Care Code 26654 INP/OBS DISCH >30 MIN Diagnoses Near syncope R55 Neutropenia D70.9 Hx pulmonary embolism Z86.711 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
--- NOTE | 2023-07-27 11:55 | Hospitalist Progress Note ---
Date of Service July 27, 2023 Assessment & Plan (1) Lower GI bleeding: Plan: He developed hematochezia while in the hospital. This is the presumed cause of the near syncopal episode. He is now on IV fluids. Eliquis has been discontinued. Serial H&H ordered. GI consultation requested. (2) Near syncope: Plan: Now asymptomatic. Thyroid levels were checked due to mild bradycardia but they are normal. Cardiac echo report is pending. Probable causes GI bleeding. (3) Neutropenia: Plan: Chemotherapy-induced. No intervention at this time. Serial labs (4) Hx pulmonary embolism: Plan: Stable. 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 Sliding scale coverage as necessary. Controlled. Continue current medical management Plan Anticipated discharge to home has been canceled due to onset of lower GI bleeding. Admission and Anticipated Discharge Date Admission Date: July 26, 2023 Subjective Anticipated discharge to home was canceled. He has now developed evidence of GI bleeding with hematochezia. IV fluids have been started and he is now on clear liquids. Gastroenterology consulted. Serial H&H ordered. Review of Systems 2 Review of Systems: Constitutional-no fever or chills ENT-no blurred vision, no double vision, no epistaxis, no sore throat Respiratory-no cough, no wheezing, no shortness of breath Cardiac-no palpitations, no chest pain, no syncope GI-no nausea, vomiting, diarrhea, melena. He developed hematochezia while in the hospital -no urinary retention, no urinary incontinence, no dysuria, no hematuria Musculoskeletal-no joint pain, no muscle tenderness Skin-no bruising, no rashes, no pruritus Neuro-no isolated weakness, no paresthesia, no weakness Psych-no depression, no anxiety Physical Exam 2 Physical Exam: General-alert and oriented x3, no fevers, no chills HEENT-head atraumatic and normocephalic, pupils equal and reactive to light, extraocular muscles intact Neck-no lymphadenopathy or thyromegaly, trachea midline Chest-clear to auscultation percussion. No rales wheezing or rhonchi Cardiac-slightly bradycardic regular rate and rhythm, normal S1 and S2 Abdomen-normal bowel sounds, nontender, no hepatosplenomegaly Extremities-no cyanosis, clubbing, or edema Neuro-cranial nerves II through XII intact, motor and sensory function within normal limits, strength symmetrical, no focal deficits Psych-normal affect, normal mood Results & Data Results & Data Vital Signs (Past 12 Hours) Vital Signs Temp Pulse Pulse Resp BP Pulse Ox O2 Del Method 07/27/23 08:31 36.6 C 60 18 148/90 H 99 Room Air 07/27/23 06:55 64 07/27/23 05:47 36.3 C L 71 20 137/95 99 Room Air 07/27/23 00:25 58 L Laboratory Results 07/27/23 05:56 07/27/23 05:56 PG Care Time/CCT Total # of Minutes Spent Total Time Spent with Patient: Total time spent is greater than 50% in coordination of care (as documented) at patient's floor/unit and/or counseling patient: Coding Level of Care Code 97136 SUB INP/OBS CARE 3/50MIN Diagnoses Lower GI bleeding K92.2 Near syncope R55 Neutropenia D70.9 Hx pulmonary embolism Z86.711 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
[2023-07-27] MEDS ORDERED: SODIUM CHLORIDE 0.9% 1,000 ML IV SCH (12:00)
--- NOTE | 2023-07-27 14:27 | Electrocardiogram Report ---
Test Reason : Blood Pressure : / mmHG Vent. Rate : 055 BPM Atrial Rate : 055 BPM P-R Int : 176 ms QRS Dur : 126 ms QT Int : 460 ms P-R-T Axes : 047 -22 034 degrees QTc Int : 440 ms Sinus bradycardia Right bundle branch block Abnormal ECG When compared with ECG of 05-JUN-2023 15:25, No significant change was found Confirmed by Prateek Richmond ([id number] on 07/27/2023 2:27:17 PM Referred By: REFERRED SELF Confirmed By:Prateek Richmond
--- NOTE | 2023-07-27 15:05 | XCELERA ---
[id number]
[2023-07-27] MEDS ORDERED: APIXABAN 5 MG TABLET PO SCH (21:00)
== END 2023-07-27 13:04 | disposition home or self-care (01) ==
LOC: EDINP 10:26 → ED 10:26 → SUATTDRO 14:01 → 2W 18:34